=== PATIENT | female | born 1945 | race Caucasian/White ===

== ENCOUNTER → 2019-05-16 13:07 | Outpatient (CLI) | payer MEDICARE, BC, SELFPAY ==
[2016-02-16 09:19] VITALS: BMI 20.7
[2019-05-16 15:47] LABS: ALB/GLOB Ratio 1.2 RATIO (0.9-2.4); AST(SGOT) 17 U/L (15-37); Alanine Aminotransfer ALT/SGPT 22 U/L (13-56); Albumin, Serum 3.8 g/dL (3.2-5.0); Alkaline Phosphatase 62 U/L (45-117); Anion Gap 6 (5-15); BUN 16 mg/dL (7-18); BUN/Creat Ratio 16.2 RATIO (10-20); Calcium,Total 8.8 mg/dL (8.5-10.1); Chloride 108 mmol/L (98-107); Creatinine, Serum 0.99 mg/dL (0.55-1.02); EST Glomerular Filtration Rate 59 mL/min (>60); Est Glom Filt Rate - Afr Amer 71 mL/min (>60); Ferritin 45 ng/mL (8-252); Globulin 3.3 g/dL (2.2-4.2); Glucose 91 mg/dL (74-106); Magnesium 2.4 mg/dL (1.6-2.6); Potassium 3.9 mmol/L (3.5-5.1); Protein, Total 7.1 g/dL (6.4-8.2); Sodium Level 141 mmol/L (136-145)
== END ==
PROVIDERS: Family Provider Family Medicine; PCP Family Medicine; Referring Provider Family Medicine; Visit Provider Family Medicine
DX: R25.2 Cramp and spasm (principal); E61.1 Iron deficiency
CPT/HCPCS: 36415; 80053; 82728; 83735

== ENCOUNTER → 2019-06-23 15:05 | Outpatient (CLI) | payer MEDICARE, BC, SELFPAY ==
[2016-02-16 09:19] VITALS: BMI 20.7
[2019-06-23 17:45] LABS: AST(SGOT) 17 U/L (15-37); Alanine Aminotransfer ALT/SGPT 25 U/L (13-56); Albumin, Serum 3.4 g/dL (3.2-5.0); Alkaline Phosphatase 59 U/L (45-117); Anion Gap 8 (5-15); BUN 10 mg/dL (7-18); BUN/Creat Ratio 11.4 RATIO (10-20); Calcium,Total 8.8 mg/dL (8.5-10.1); Chloride 108 mmol/L (98-107); Creatinine, Serum 0.88 mg/dL (0.55-1.02); EST Glomerular Filtration Rate 67 mL/min (>60); Est Glom Filt Rate - Afr Amer 81 mL/min (>60); Globulin 3.3 g/dL (2.2-4.2); Glucose 115 mg/dL (74-106); Potassium 3.5 mmol/L (3.5-5.1); Protein, Total 6.7 g/dL (6.4-8.2); Sodium Level 143 mmol/L (136-145)
[2019-06-27 03:06] LABS: Immunoglobulin A 381 mg/dL (64-422)
[2019-06-29 13:41] LABS: Deamidated Gliadin IgA 19 units (0-19); Deamidated Gliadin IgG 2 units (0-19); Endomysial Antibody IgA Negative (Negative); Immunoglobulin E 23 IU/mL (6-495); t-Transglutaminase IgA <2 U/mL (0-3)
== END ==
PROVIDERS: Family Provider Family Medicine; PCP Family Medicine; Visit Provider Family Medicine
DX: K29.70 Gastritis, unspecified, without bleeding (principal)
CPT/HCPCS: 36415; 80053; 82784; 82785; 83516; 86255

== ENCOUNTER 2019-07-07 06:30 | Inpatient (IN) | payer MEDICARE, BC, SELFPAY ==
[2019-07-07] VITALS (18 sets, daily range): BP systolic 106–155; BP diastolic 56–77; PULSE 95–116; RESP 16–18; TEMP 37.2–37.9; O2SAT 92–99; BMI 21.3; BMI 21.4
--- NOTE | 2019-07-07 | FLU_PTH ---
PATIENT: BUSTER LARSON LOC: MS3 U#:[id number] AGE/SX: 74/F ROOM: MS320 RE07/07/[address]: Dr. Edilma Valdez MD : 1945 BED: 1 DIS: 07/10/2019 SPEC #: [id number] RECD: 07/07/19 12:15 STATUS: SALLIE REYamile #: [id number] BETTIE: 07/07/19 00:[address]: Edilma Valdez DEPT: CYTOLOGY RECD BY: Carlos Larkin ENTERED: 07/07/19 13:00 SP TYPE: Fluid OTHR DR: Dr. Andrew Collnis MD Tissues: Peritoneal fluid Procedures: Special Stain Group II Surgery Specimen Level IV Cytospin Fluid Comments: NO MICRO ORDERS PER JOSH 07/07/19 HEADER OPERATION: Diagnostic laparoscopy PRE-OP DIAGNOSIS: Abdominal pain, perforation of sigmoid colon due to diverticulitis TISSUE SUBMITTED: Abdomen fluid for cytology DIAGNOSIS CYTOLOGY Abdominal fluid for cytology (cytospin and cell block): Negative for malignant cells. Marked acute inflammation. See cytology study and comment. МАРИЯ:bobby 07/09/19 COMMENT Please also correlate with corresponding surgical specimen [id number]. CYTOLOGY STUDY Slides are reviewed. The specimen predominantly consists of neutrophils. CYTOLOGY GROSS Received is 13 ml of red turbid fluid labeled with the patient's name and and designated per the requisition as abdomen. Submitted for cytology preparation including cell block. /CC:cc 07/07/19 TC:5 CPT: 30892, 50127
[2019-07-07 06:56] LABS: Absolute Lymphocyte Count 0.34 X10^3/uL (0.83-4.51); Absolute Neutrophil Count 12.9 X10^3/uL (2.0-7.7); Basophil# 0.02 X10^3/uL; Basophil% 0.1 % (0-1); Eosinophil# 0.09 X10^3/uL; Eosinophils% 0.7 % (0-5); Hematocrit 43.6 % (37-47); Lymphocyte # 0.34 X10^3/ul (4.0); Lymphocyte % 2.5 % (19-41); Mean Corp Hgb Conc 32.1 g/dL (32-36); Mean Corpuscular Hgb 27.3 pg (27.0-32.0); Mean Platelet Vol. 9.1 fl (6.2-12.0); Monocyte# 0.42 X10^3/uL; NRBC Flagged by Analyzer 0 % (0-5); Neutrophil # 12.87 X10^3/uL (2.7-7.7); Neutrophil % 93.3 % (47-70); POSITIVE DIFFERENTIAL YES; Platelet Count 180 K/mm3 (150-450); RBC Distribution Width CV 13.4 % (11.6-14.6); RBC Distribution Width SD 41.3 fl (35.1-43.9); Red Blood Count 5.13 M/mm3 (4.2-5.4); White Blood Count 13.8 K/mm3 (4.4-11.0)
[2019-07-07 07:04] LABS: Differential Indicated SCAN CRITERIA MET
--- NOTE | 2019-07-07 07:04 | CT_ITS ---
We are attempting to reach an attending provider to discuss findings. An addendum with communication details will be sent when the communication is complete. STUDY: CT ABDOMEN AND PELVIS WITH CONTRAST REASON FOR EXAM: Female, 74 years old. Abdominal pain and bloating RADIATION DOSAGE (If Supplied By Facility): CTDIvol = ( 20.19 ) mGy, DLP = ( 363.78 ) mGycm TECHNIQUE: Transaxial images were obtained from the dome of the diaphragm to the symphysis pubis without oral contrast. IV/Oral Isovue 300 100mL was administered. Sagittal and coronal images were reconstructed. Individualized dose optimization techniques were used for this CT. COMPARISON: None. FINDINGS: The visualized lung bases are unremarkable. The visualized portions of the heart are within normal limits. 1 cm cyst in the anterior segment the right lobe of the liver. Normal gallbladder and extrahepatic biliary system. Normal spleen. Normal pancreas. Normal bilateral adrenal glands. Normal right kidney. Normal left kidney. There is a small hiatal hernia. Normal small intestine. Wall thickening and stranding of surrounding fat of the distal sigmoid colon with some surrounding free fluid as well as bubbles of free air worrisome for infectious colitis or diverticulitis or colonic carcinoma with perforation. Furthermore, a small amount of pneumoperitoneum is seen in the upper abdomen. There is non-visualization of the appendix. Normal abdominal aorta. Normal inferior vena cava. Normal retroperitoneum. Normal urinary bladder. Normal abdominal wall. Mild levoscoliosis of the thoracolumbar spine with degenerative disc disease particularly at L2/L3. CT/Abdomen/Pelvis WITH Contrast IMPRESSION: Inflammatory change in the distal sigmoid colon with pneumoperitoneum consistent with perforation. Differential diagnosis includes infectious colitis, diverticulitis, or colonic carcinoma. Electronically Signed: Adams Jaramillo MD at 9:45 EDT Tel , Service support ,
[2019-07-07] MEDS: Ondansetron 4 MG/2 ML Vial IV ×2 (07:15→17:25)
[2019-07-07] MEDS: Morphine 2 MG/ML Syringe IV ×2 (07:15→17:25)
[2019-07-07 07:16] LABS: Anion Gap 10 (5-15); BUN 14 mg/dL (7-18); BUN/Creat Ratio 13.7 RATIO (10-20); Calcium,Total 8.7 mg/dL (8.5-10.1); Chloride 104 mmol/L (98-107); Creatinine, Serum 1.02 mg/dL (0.55-1.02); EST Glomerular Filtration Rate 57 mL/min (>60); Est Glom Filt Rate - Afr Amer 68 mL/min (>60); Estimated Creatinine Clearance 40.63 ml/min; Glucose 180 mg/dL (74-106); Potassium 3.6 mmol/L (3.5-5.1); Sodium Level 138 mmol/L (136-145)
--- NOTE | 2019-07-07 07:19 | ED.DCSUM_ITS ---
- ER Visit Summary Date of Service: 07/07/19 Chief Complaint: Abdominal pain History of Present Illness: The patient is a 74 F who presents the emergency department for evaluation of abdominal pain and bloating. Patient states that she has had a prior appendectomy. No prior to be. She tells me that one week ago she had dental implants placed and was placed on Keflex. By Sunday she had developed diarrhea that has continued. Last night around 2130 hrs. she developed lower abdominal pain is progressively gotten worse and she states now is generalized in the abdomen. She feels bloated. She had last had any type of bowel movement around 0200 hours. She denies any prior history of colitis, diverticulitis, small bowel obstruction, volvulus. She tells me that one year ago after a trip to the [facility] she had very bad diarrhea was given prescriptions for antibiotics 1 of which she states was for C. difficile though she never had a test that was positive. Physical Examination: 99.3 heart rate of 111 respirations are 16 pulse ox 96% on room air 143/77 Gen: Well-nourished well-developed Head: Normocephalic atraumatic Eyes: Perrl EOMI ENT: TMs clear no rhinorrhea moist mucous membranes Neck: Supple no lymphadenopathy no JVD nontender CVS: Regular rate tachycardic rhythm no murmurs normal S1-S2 Respiratory: No distress clear to auscultation bilaterally chest nontender Abdomen: Patient notes diffuse tenderness to palpation with guarding and rebound. The abdomen feels firm. Hypoactive bowel sounds no masses Back: Nontender Extremity: Nontender no edema Skin: Normal color no rash Neuro: alert orientated ?3 CN II-XII intact normal strength sensation Psych: Normal affect normal mood Test Results: Count is elevated at 13.8. Glucose of 180. Lactic acid returned urinalysis negative. CT down pelvis demonstrates inflammatory changes around the sigmoid colon. Noted to have pneumoperitoneum as well. Emergency Department Course and Treatment: She received IV fluids, Zofran, and morphine. Upon reviewing the CT images myself before the radiologist read was back I contacted Dr. Valdez who is on-call today for general surgery. She will be down to evaluate the patient. In the interim I have ordered additional IV fluids as well as Zosyn and blood cultures. Plan is the patient to be admitted and surgery. Impression: 1. Acute sigmoid colitis 2. Pneumoperitoneum This note was generated with [employer] dictation software. It may contain incorrect words, spelling, and punctuation that were not noted in review of the chart prior to signing ED Disposition - Plan for ED Patient:
[2019-07-07 07:26] LABS: Differential Comment SCANNED
[2019-07-07] MEDS: 0.9% Normal Saline 1,000 ML 125 ML IV (07:37)
--- NOTE | 2019-07-07 07:39 | ED.RN ---
lactic 3.[address] lab. dr nicolas aware
[2019-07-07 07:43] LABS: AST(SGOT) 15 U/L (15-37); Alanine Aminotransfer ALT/SGPT 21 U/L (13-56); Albumin, Serum 3.7 g/dL (3.2-5.0); Alkaline Phosphatase 61 U/L (45-117); Bilirubin, Direct 0.16 mg/dL (0.00-0.30); Globulin 3.4 g/dL (2.2-4.2); Lactic Acid 3.5 mmol/L (0.4-2.0); Lipase 109 U/L (73-393); Protein, Total 7.1 g/dL (6.4-8.2)
[2019-07-07] MEDS: 0.9% Normal Saline 1,000 ML 999 ML IV ×2 (08:08→09:10)
[2019-07-07 09:16] LABS: Bacteria 0 SEEN /hpf (None Seen); Mucous, Urine 0 SEEN /hpf (<or=2+); Red Blood Cells-Urine 0 SEEN /hpf (0-5); White Blood Cells 0 SEEN /hpf (0-5)
[2019-07-07 09:20] LABS: Color, Urine Yellow (Yellow); Glucose, Dipstick Normal (Normal); Ketone-Dipstick Negative (Negative); Leukocyte Esterase-Dipstick Negative /ul (Negative); Nitrite-Dipstick Negative (Negative); Occult Blood-Urine Negative /ul (Negative); Protein-Dipstick Negative (Negative); Specific Gravity, Urine 1.005 (1.002-1.030); Urine Bilirubin Dipstick Negative (Negative); Urine Clarity Sl. Cloudy (Clear); Urine Urobilinogen Normal (Normal)
[2019-07-07 09:29] LABS: Squamous Epithelial Cells - UA 0-5 SEEN /hpf (5-10)
--- NOTE | 2019-07-07 09:57 | HP.PCM_ITS ---
Problem List (1) Abdominal pain Status: Acute (2) Perforation of sigmoid colon due to diverticulitis Status: Acute History of Present Illness Date of Admission: 07/07/19 Chief Complaint: Generalized abdominal pain especially left lower quadrant The patient is a 74 year old F who presented with 1 day history of worsening abdominal pain. Patient noted her abdominal pain started in the left lower quadrant and is now generalized. She eats a plant-based diet with nuts, fruits and veggie based. She notes a history of MVP. 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 She recently had dental implants approximately 1 week ago. She was given Keflex following the implants which gave her diarrhea. She notes her diet has returned to her normal up until the last 2 days. She notes a previous Cologuard approximately 3 years ago which was normal. She is unsure of her last colonoscopy. She notes her family was wanting her to have a colonoscopy. She denies family history of colon cancer. She denies chest pain, shortness of breath currently. Her previous abdominal surgeries include appendectomy and right ovary removal. She is not on any blood thinners. 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 CT scan of the abdomen/pelvis demonstrated the following: Inflammatory change in the distal sigmoid colon with pneumoperitoneum consistent with perforation. Differential diagnosis includes infectious colitis, diverticulitis, or colonic carcinoma. WBC is 13.8 and lactic acid is 3.5. 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: No pertinent AFRICAN HISTORY PROFESSOR history Lives: Spouse/ Significant Other Smoking Status: Never smoker - *Family History Maternal History Items: No pertinent history Paternal History Items: No pertinent history Review of Systems Constitutional: Reports: Anorexia, Chills, Fever, Night Sweats, Weakness, Fatigue HEENT: Denies: Head Aches, Sinus Congestion, Sinus Drainage Cardiovascular: Denies: Chest Pain, Palpitations Respiratory: Denies: Cough, Shortness of breath at rest, Sputum production Gastrointestinal: Reports: Abdominal Pain, Diarrhea, Nausea Genitourinary: Denies: Dysuria Musculoskeletal: Denies: Joint Pain, Joint Tenderness Skin: Denies: Rash, Wounds Neurological: Denies: Numbness, Tingling, Focal weakness Psychiatric: Denies: Anxiety, Depression, Homicidal Ideations, Suicidal Ideations Hematologic/ Lymphatic: Denies: Easy Bruising, Easy Bleeding VTE Information - Inpt Only VTE Present on Admission: Yes VTE Mechan Device Prophylaxis: SCD's Patient Problems: Active and Suspected Problems Abdominal pain (Acute) Perforation of sigmoid colon due to diverticulitis (Acute) - Physical Exam General: Alert, Oriented x3, Cooperative, - - Appears ill HEENT: Atraumatic, PERRLA, EOMI, Normocephalic Neck: Supple, No JVD, Negative Carotid Bruits Lungs: Clear to auscultation, Normal air movement Cardiovascular: Tachycardic Abdomen: Hypoactive Bowel Sounds, Distended, Guarding, Tender - generalized Extremities: No edema, Capillary Refill Less than 3 Seconds Skin: No rashes, No breakdown Musculoskeletal: No Tenderness to Palpation of Joints or Extremities Neurological: Cranial nerves II-XII grossly intact Psych/Mental Status: Normal Affect, Appropriate Vital Signs Temp Pulse Resp BP Pulse Ox 98.9 F 110 H 18 119/65 96 07/07/19 09:51 07/07/19 09:51 07/07/19 09:51 07/07/19 09:51 07/07/19 09:51 Oxygen Delivery Method Room Air Weight: 120 lb 9.486 oz Body Mass Index (BMI) 21.3 Intake and Output for Last 24 Hours 07/05/19 07/06/19 07/07/19 23:59 23:59 23:59 Intake Total 4.58 / 2064.58 Balance 4.58 / 4.58 Laboratory Tests Past 24 Hrs 07/07/19 07/07/19 07/07/19 06:40 06:40 06:56 WBC 13.8 H RBC 5.13 Hgb 14.0 Hct 43.6 MCV 85.0 MCH 27.3 MCHC 32.1 RDW Std Deviation 41.3 RDW Coeff of Mini 13.4 Plt Count 180 MPV 9.1 Immature Gran % (Auto) 0.400 Neut % (Auto) 93.3 H Lymph % (Auto) 2.5 L [place] % (Auto) 3.0 Eos % (Auto) 0.7 Baso % (Auto) 0.1 Absolute Neuts (auto) 12.9 H Absolute Lymphs (auto) 0.34 L Nucleated RBC % 0 Differential Comment SCANNED Sodium 138 Potassium 3.6 Chloride 104 Carbon Dioxide 24.0 Anion Gap 10 BUN 14 Creatinine 1.02 Estim Creat Clear Calc 40.63 Est GFR (MDRD) Af Amer 68 Est GFR (MDRD) Non-Af 57 L BUN/Creatinine Ratio 13.7 Glucose 180 H Lactic Acid Calcium 8.7 Total Bilirubin 0.70 Direct Bilirubin 0.16 AST 15 ALT 21 Alkaline Phosphatase 61 Total Protein 7.1 Albumin 3.7 Globulin 3.4 Lipase 109 Urine Color Urine Clarity Urine pH Ur Specific [place] Urine Protein Urine Glucose (UA) Urine Ketones Urine Occult Blood Urine Nitrite Urine Bilirubin Urine Urobilinogen Ur Leukocyte Esterase Urine RBC Urine WBC Ur Squamous Epith Cells Urine Bacteria Urine Mucus 07/07/19 07/07/19 06:56 09:04 WBC RBC Hgb Hct MCV MCH MCHC RDW Std Deviation RDW Coeff of Mini Plt Count MPV Immature Gran % (Auto) Neut % (Auto) Lymph % (Auto) [place] % (Auto) Eos % (Auto) Baso % (Auto) Absolute Neuts (auto) Absolute Lymphs (auto) Nucleated RBC % Differential Comment Sodium Potassium Chloride Carbon Dioxide Anion Gap BUN Creatinine Estim Creat Clear Calc Est GFR (MDRD) Af Amer Est GFR (MDRD) Non-Af BUN/Creatinine Ratio Glucose Lactic Acid 3.5 H Calcium Total Bilirubin Direct Bilirubin AST ALT Alkaline Phosphatase Total Protein Albumin Globulin Lipase Urine Color Yellow Urine Clarity Sl. Cloudy Urine pH 7.0 Ur Specific [place] 1.005 Urine Protein Negative Urine Glucose (UA) Normal Urine Ketones Negative Urine Occult Blood Negative Urine Nitrite Negative Urine Bilirubin Negative Urine Urobilinogen Normal Ur Leukocyte Esterase Negative Urine RBC 0 SEEN Urine WBC 0 SEEN Ur Squamous Epith Cells 0-5 SEEN Urine Bacteria 0 SEEN Urine Mucus 0 SEEN Assessment/Plan All Active Problems Abdominal pain (Acute) Perforation of sigmoid colon due to diverticulitis (Acute) I am seeing this patient in conjunction with Dr. Valdez. She has independently evaluated this patient with me. Impression: Perforated sigmoid diverticulitis with free abdominal air. Plan: Patient was discussed with Dr. Valdez. Dr. Valdez will plan to perform a emergent diagnostic laparoscopic with possible conversion to open exploration of the abdomen with possible colectomy possible ileostomy creation. Patient and her have had the opportunity to ask and have questions answered. Patient verbally understands and agrees with the plan. Thank you for allowing us to participate in this patient's care. Code Visit Office Visits / Consults: [id number] IP Consult L3
--- NOTE | 2019-07-07 10:30 | EKG12_ITS ---
Test Reason : POST OP Blood Pressure : / mmHG Vent. Rate : 106 BPM Atrial Rate : 106 BPM P-R Int : 196 ms QRS Dur : 102 ms QT Int : 348 ms P-R-T Axes : 061 086 051 degrees QTc Int : 462 ms Sinus tachycardia Otherwise normal ECG Confirmed by ALTAGRACIA GONZALEZ, [place] ([id number]), editor news CAROL WORTHY ([id number]) on 07/09/2019 2:25:58 PM Referred By: EMMETT Confirmed By:KY FRIAS MD
[2019-07-07 11:08] LABS: Reflex Lactate? Y
--- NOTE | 2019-07-07 11:23 | PCM.PN.BLA ---
Progress Note EKG did show some T wave inversions per anesthesia patient denies any chest pain, her troponins are negative currently- she had an echo but that was years ago. We will continue to watch closely during surgery did discuss with patient and that there is any concern during surgery patient would be getting an end colostomy. Patient and the understood.
--- NOTE | 2019-07-07 12:00 | COL_PTH ---
PATIENT: BUSTER LARSON LOC: MS3 U#:[id number] AGE/SX: 74/F ROOM: KY320 RE07/07/[address]: Dr. Edilma Valdez MD : 1945 BED: 1 DIS: 07/10/2019 SPEC #: [id number] RECD: 07/07/19 14:51 STATUS: SALLIE ALEX #: [id number] BETTIE: 07/07/19 12:[address]: Edilma Valdez DEPT: SURGICAL PATHOLOGY RECD BY: Carlos Larkin ENTERED: 07/07/19 15:19 SP TYPE: COLON OTHR DR: Dr. Andrew Collins MD Tissues: A - Colon, NOS B - Colon Donuts C - Colon Donuts Procedures: Surgery Specimen Level III Surgery Specimen Level V HEADER OPERATION: Diagnostic laparoscopy, open, bowel resection PRE-OP DIAGNOSIS: Abdominal pain; perforation of sigmoid colon due to diverticulitis TISSUE SUBMITTED: A - Sigmoid colon, suture distal, B - Distal donut, C - Proximal donut MICROSCOPIC DIAGNOSIS A. Sigmoid colon, colectomy: Diverticulosis and diverticulitis with focal area of ruptured diverticula. See comment. B. Distal donut: Colonic donut with focal mucosal congestion and hemorrhage. C. Proximal donut: Colonic donut with focal mucosal congestion and hemorrhage. SJ:bobby 07/09/19 COMMENT A. Area of rupture shows abscess formation and foreign body giant cell reaction. Please correlate with corresponding cytology specimen [id number]. MICROSCOPIC DESCRIPTION Slides are reviewed. GROSS DESCRIPTION A - Received in fixative is one container labeled with the patient's name and designated sigmoid colon, suture distal margin. The specimen consists of a segment of colon with attached pericolonic adipose tissue measuring 12 cm in length. The proximal margin is stapled. The distal margin identified by a suture is not stapled. No mucosal lesion is identified. Sections reveal a few diverticula. Focal area shows ruptured diverticula. Sections of pericolonic adipose tissue do not reveal any obviously enlarged lymph node. Train Starter sections are submitted in five cassettes as follows: 1 - resection margins, distal resection margin inked black, 2-4 - diverticula (cassettes 2 & 3 contain the ruptured diverticula), 5??pericolonic adipose tissue. / МАРИЯ:bobby 07/08/19 B - Received in fixative is one container labeled with the patient's name and designated distal donut. The specimen consists of a donut-shaped piece of colonic tissue measuring 1.5 x 1 x 1 cm. Multiple sutures are noted. Train Starter sections are submitted in one cassette. / МАРИЯ:bobby 07/07/19 C - Received in fixative is one container labeled with the patient's name and designated proximal donut. The specimen consists of a donut-shaped piece of colonic tissue measuring 1.5 x 1 x 0.5 cm. The entire specimen is submitted in one cassette. / МАРИЯ:bobby 07/07/19 TC:5 CPT: 23353, 43778 x2
[2019-07-07 12:21] LABS: Cytology, Body Fluid / CSF SEE PATHOLOGY REPORT
--- NOTE | 2019-07-07 13:30 | OP.PCM_ITS ---
Report of Operation Date of Procedure: 07/07/19 Pre-Operative Diagnosis: Pneumoperitoneum probable diverticulitis Post-Operative Diagnosis: Pneumoperitoneum, perforated sigmoid diverticulitis Surgery/Procedure Performed:: Diagnostic laparoscopy converted to open sigmoidec meera mines inspector: Disha Robledo mines inspector: Phillip Gomez Type of Anesthesia:: General/Supplemental Anesthesiologist: Andrew Luo Special Medications: Zosyn 4.5 g IV x1 given in ER prior to surgery Specimen's removed: Sigmoid colon Drains: Paez- 750 Estimated Blood Loss (mL): 50 cc Fluids Replaced: 2300 cc Description of Procedure: Patient brought to the operating room placed supine on operating table. Timeout was clear verifying correct patient, procedure, site, positioning, special, prior to beginning procedure. General anesthesia was induced. An OG and Paez catheter were placed. The abdomen was prepped and draped in usual sterile fashion. At 15 blade scalpel was used to make an infraumbilical incision this was deepe tyler to the fascia the fascia was elevated and incised. Abdomen was entered under direct visualization. Coates was placed. The abdomen was insufflated to 15 mmHg. 2 more 5 mm trochars were placed on the right lateral abdomen. Trochars placed under direct visualization. Patient tolerated insufflation well. There is noted to be purulent fluid in the pelvis which was sent for culture. The distal sigmoid did appear thickened and inflamed with the laparoscope was unable to see an obvious perforation. The stomach and upper abdomen did not appear to have any inflammation in that area. Case was converted to laparotomy to have a better look at the sigmoid colon. The 5 mm trochars were removed direct visualization. 10 blade scalpel was used to make a lower midline incision this was deepened to the fascia with electrocautery. A large wound protector was placed. Upon looking at the sigmoid colon there was an area of small perforation. The proximal sigmoid colon was divided at normal colon to resect the area of perforation using NATALIE 75 stapler proximally and Metzenbaum scissors distally at normal/healthy colon. The mesentery was ligated using the LigaSure impact. The sigmoid colon was reanastomosed to the distal sigmoid/rectum using the Ethicon 25 EEA stapler. To accommodate the handle and enterotomy was made along the tinea in the proximal colon. The anvil was placed in the distal colon and a pursestring of 0 Prolene was used. The spike was advanced and connected to the anvil. The stapler was closed ensuring no extra tissue in the anastomosis. Stapler was fired. Stapler was carefully removed, 2 complete donuts were seen. The enterotomy was closed in 2 layers with a efra 3-0 chromic suture transversely and Lembert 3-0 silk sutures. The abdomen was irrigated with 2 L of irrigation. The wound protector was removed. Gowns and gloves were changed. The wound was closed with 1-0 PDS sutures. The skin was closed loosely with 4-0 Monocryl with interrupted Betadine soaked Telfa was used. A 5 mm trocar sites were closed with 4-0 Monocryl interrupted suture. Patient was extubated. Patient tolerates procedure well was taken to the postanesthesia care unit in stable condition. - Complications none
[2019-07-07] MEDS: Bupiv/Epi 0.5% Mpf 30 ML Vial (13:31)
[2019-07-07] MEDS: Lactated Ringers 1,000 ML 125 ML IV (13:45)
[2019-07-07 15:03] LABS: Lactic Acid 1.9 mmol/L (0.4-2.0)
--- NOTE | 2019-07-07 16:41 | EKG12_ITS ---
Test Reason : PRE-OP Blood Pressure : / mmHG Vent. Rate : 118 BPM Atrial Rate : 118 BPM P-R Int : 186 ms QRS Dur : 118 ms QT Int : 324 ms P-R-T Axes : 053 086 022 degrees QTc Int : 454 ms Sinus tachycardia T wave abnormality, consider inferior ischemia Abnormal ECG No previous ECGs available Confirmed by IVET GONZALEZ, STEFANIE ([id number]), medical transcription editor CHARLEE SILVA ([id number]) on 07/28/2019 11:38:45 AM Referred By: EMMETT Confirmed By:STEFANIE COONEY MD
[2019-07-07] MEDS: Morphine 4 MG/ML Syringe IV (20:43)
[2019-07-08] MEDS: Lactated Ringers 1,000 ML 125 ML IV ×2 (00:08→09:13)
[2019-07-08] MEDS: Morphine 4 MG/ML Syringe IV ×2 (01:23→07:45)
[2019-07-08 02:12] VITALS: BP 123/49; PULSE 98; RESP 16; TEMP 37.4; O2SAT 94
[2019-07-08 07:34] LABS: Absolute Lymphocyte Count 1.31 X10^3/uL (0.83-4.51); Basophil# 0.02 X10^3/uL; Basophil% 0.2 % (0-1); Eosinophil# 0.06 X10^3/uL; Eosinophils% 0.5 % (0-5); Hematocrit 36.1 % (37-47); Hemoglobin 11.6 g/dL (12.0-15.0); Lymphocyte # 1.31 X10^3/ul (4.0); Lymphocyte % 9.9 % (19-41); Mean Corp Hgb Conc 32.1 g/dL (32-36); Mean Corpuscular Hgb 28.2 pg (27.0-32.0); Mean Corpuscular Volume 87.8 fL (81-99); Mean Platelet Vol. 9.1 fl (6.2-12.0); Monocyte# 0.68 X10^3/uL; Monocyte% 5.2 % (0-10); NRBC Flagged by Analyzer 0 % (0-5); Neutrophil # 11.01 X10^3/uL (2.7-7.7); Neutrophil % 83.4 % (47-70); Platelet Count 150 K/mm3 (150-450); RBC Distribution Width SD 44.7 fl (35.1-43.9); Red Blood Count 4.11 M/mm3 (4.2-5.4); White Blood Count 13.2 K/mm3 (4.4-11.0)
[2019-07-08 07:41] VITALS: BP 139/67; PULSE 95; RESP 18; TEMP 37.7; O2SAT 97
[2019-07-08 07:45] LABS: Anion Gap 3 (5-15); BUN 11 mg/dL (7-18); BUN/Creat Ratio 14.1 RATIO (10-20); Calcium,Total 8.1 mg/dL (8.5-10.1); Chloride 110 mmol/L (98-107); Creatinine, Serum 0.78 mg/dL (0.55-1.02); EST Glomerular Filtration Rate 77 mL/min (>60); Est Glom Filt Rate - Afr Amer 93 mL/min (>60); Estimated Creatinine Clearance 41.45 ml/min; Glucose 87 mg/dL (74-106); Potassium 3.5 mmol/L (3.5-5.1); Sodium Level 140 mmol/L (136-145)
[2019-07-08] MEDS: 0.9% NaCl Peripheral Flush Adult/Peds IV (07:46)
[2019-07-08] MEDS: Lactated Ringers 1,000 ML 999 ML IV (07:58)
--- NOTE | 2019-07-08 08:08 | PN.SURG_ITS ---
Patient Problems: Active and Suspected Problems Abdominal pain (Acute) Perforation of sigmoid colon due to diverticulitis (Acute) Subjective: Patient did have low-grade fever last night of 100.2 currently 99, urine output little bit lower overnight, patient's abdominal pain controlled with medication, patient denies any flatus - Physical Exam General: Alert, Oriented x3, Cooperative, No apparent distress HEENT: Atraumatic Lungs: Normal air movement Cardiovascular: Regular rate Abdomen: Soft, Distended - Moderate, Tender - Appropriate tender to palpation, incision clean dry and intact with Betadine toney, no peritoneal signs Extremities: No clubbing, No cyanosis, No edema Vital Signs Temp Pulse Resp BP Pulse Ox 99.9 F H 95 18 139/67 H 97 07/08/19 07:41 07/08/19 07:41 07/08/19 07:41 07/08/19 07:41 07/08/19 07:41 Oxygen Flow Rate (L/min) 2 Oxygen Delivery Method Nasal Cannula Weight: 120 lb 9.486 oz Body Mass Index (BMI) 21.3 Intake and Output for Last 24 Hours 07/06/19 07/07/19 07/08/19 23:59 23:59 23:59 Intake Total 3274.58 / 3274.58 50 / 50 Output Total 1060 / 1410 500 / 500 Balance 2214.58 / 1864.58 -450 / -450 Microbiology Past 72 Hours 07/07/19 Unknown Gram Stain - Final Fluid - Peritoneal Laboratory Tests Past 24 Hrs 07/07/19 07/07/19 07/07/19 06:40 09:04 12:19 WBC RBC Hgb Hct MCV MCH MCHC RDW Std Deviation RDW Coeff of Mini Plt Count MPV Immature Gran % (Auto) Neut % (Auto) Lymph % (Auto) Granite % (Auto) Eos % (Auto) Baso % (Auto) Absolute Neuts (auto) Absolute Lymphs (auto) Nucleated RBC % Sodium Potassium Chloride Carbon Dioxide Anion Gap BUN Creatinine Estim Creat Clear Calc Est GFR (MDRD) Af Amer Est GFR (MDRD) Non-Af BUN/Creatinine Ratio Glucose Lactic Acid Calcium Troponin I < 0.015 Urine Color Yellow Urine Clarity Sl. Cloudy Urine pH 7.0 Ur Specific Dickinson 1.005 Urine Protein Negative Urine Glucose (UA) Normal Urine Ketones Negative Urine Occult Blood Negative Urine Nitrite Negative Urine Bilirubin Negative Urine Urobilinogen Normal Ur Leukocyte Esterase Negative Urine RBC 0 SEEN Urine WBC 0 SEEN Ur Squamous Epith Cells 0-5 SEEN Urine Bacteria 0 SEEN Urine Mucus 0 SEEN Miscellaneous Cytology Pending 07/07/19 07/07/19 07/08/19 14:33 16:00 07:12 WBC 13.2 H RBC 4.11 L Hgb 11.6 L Hct 36.1 L MCV 87.8 MCH 28.2 MCHC 32.1 RDW Std Deviation 44.7 H RDW Coeff of Mini 14.0 Plt Count 150 MPV 9.1 Immature Gran % (Auto) 0.800 Neut % (Auto) 83.4 H Lymph % (Auto) 9.9 L [place] % (Auto) 5.2 Eos % (Auto) 0.5 Baso % (Auto) 0.2 Absolute Neuts (auto) 11.0 H Absolute Lymphs (auto) 1.31 Nucleated RBC % 0 Sodium Potassium Chloride Carbon Dioxide Anion Gap BUN Creatinine Estim Creat Clear Calc Est GFR (MDRD) Af Amer Est GFR (MDRD) Non-Af BUN/Creatinine Ratio Glucose Lactic Acid 1.9 Calcium Troponin I < 0.015 Urine Color Urine Clarity Urine pH Ur Specific Dickinson Urine Protein Urine Glucose (UA) Urine Ketones Urine Occult Blood Urine Nitrite Urine Bilirubin Urine Urobilinogen Ur Leukocyte Esterase Urine RBC Urine WBC Ur Squamous Epith Cells Urine Bacteria Urine Mucus Miscellaneous Cytology 07/08/19 07:12 WBC RBC Hgb Hct MCV MCH MCHC RDW Std Deviation RDW Coeff of Mini Plt Count MPV Immature Gran % (Auto) Neut % (Auto) Lymph % (Auto) Granite % (Auto) Eos % (Auto) Baso % (Auto) Absolute Neuts (auto) Absolute Lymphs (auto) Nucleated RBC % Sodium 140 Potassium 3.5 Chloride 110 H Carbon Dioxide 27.0 Anion Gap 3 L BUN 11 Creatinine 0.78 Estim Creat Clear Calc 41.45 Est GFR (MDRD) Af Amer 93 Est GFR (MDRD) Non-Af 77 BUN/Creatinine Ratio 14.1 Glucose 87 Lactic Acid Calcium 8.1 L Troponin I Urine Color Urine Clarity Urine pH Ur Specific Dickinson Urine Protein Urine Glucose (UA) Urine Ketones Urine Occult Blood Urine Nitrite Urine Bilirubin Urine Urobilinogen Ur Leukocyte Esterase Urine RBC Urine WBC Ur Squamous Epith Cells Urine Bacteria Urine Mucus Miscellaneous Cytology Medical Necessity - Tobacco Use Smoking Status: Never smoker Assessment/Plan All Active Problems Abdominal pain (Acute) Perforation of sigmoid colon due to diverticulitis (Acute) 74-year-old female postop day 1 status post sigmoidectomy due to perforated diverticulitis 1. Continue n.p.o. with IV fluids we will give a bolus this morning due to lower urine output overnight. Await bowel function 2. Paez for I's and O's 3. Continue Zosyn IV, leukocytosis 13.2 4. Continue pain control 5. Continue ambulation and incentive spirometer Edilma Valdez M.D. Pager: [phone] [facility] [address] [place] [address], [facility], [address] [place] [address] Office: [phone]
--- NOTE | 2019-07-08 08:22 | NURSING ---
dr kamara in to see pt. made aware only 150ml u.o.p. from [place] to 0600. order to leeashley mahmood in for now & give 1L bolus. will recheck around noon
[2019-07-08] MEDS: Enoxaparin 40 MG/0.4 ML Syringe SC (10:39)
--- NOTE | 2019-07-08 11:00 | CASEMGMT ---
RN CM Face to Face with patient for initial transition planning/care coordination assessment. RN CM introduced self and role at [facility]. Patient sitting in chair, alert and oriented, friends at bedside. RN CM asked permission to continue assessment with friend present, patient gave permission for RN CM to continue with assessment. Patient willing to participate in assessment and is able to answer all questions appropriately. Care providers, pharmacy, and demographics verified. Patient wishes to discharge home, denies need for home health at this time. Patient states she has no further needs or concerns at this time. CM to follow for discharge planning needs that may arise. PCP: Andrew Collins Specialists: None Preferred Pharmacy: [facility] Insurance: [employer] Prescription Benefit: yes Living Will/HPOA: none, would like complete while at hospital LNOK: Living Arrangements: Patient lives with in 2 story home with option for bed and bath on first floor. Transportation: self/ DME/HHC: Patient denies DME or HHC Disposition Plan: Patient to discharge home with family support and follow-up plans in place. Amna JON, RN, CM
[2019-07-08 13:02] VITALS: BP 135/63; PULSE 103; RESP 18; TEMP 37.5; O2SAT 91
[2019-07-08] MEDS: Ketorolac 15 MG/ML Vial IV ×2 (14:13→21:12)
--- NOTE | 2019-07-08 15:24 | CASEMGMT ---
Social Work Note SW received referral for advanced directives. SW will meet with pt tomorrow in regards to advanced directives. Amna La AUTOMOBILE SERVICE STATION MECHANIC, COMMUNITY ENGAGEMENT MANAGER
[2019-07-08 16:58] VITALS: BP 123/49; PULSE 97; RESP 18; TEMP 37.2; O2SAT 91
[2019-07-08 22:38] VITALS: BP 124/58; PULSE 106; RESP 18; TEMP 37; O2SAT 92
[2019-07-09 04:39] VITALS: BP 130/62; PULSE 96; RESP 20; TEMP 37.4; O2SAT 92
[2019-07-09 05:12] LABS: Absolute Lymphocyte Count 1.24 X10^3/uL (0.83-4.51); Absolute Neutrophil Count 8.8 X10^3/uL (2.0-7.7); Basophil# 0.05 X10^3/uL; Basophil% 0.5 % (0-1); Eosinophil# 0.12 X10^3/uL; Eosinophils% 1.1 % (0-5); Lymphocyte # 1.24 X10^3/ul (4.0); Lymphocyte % 11.4 % (19-41); Mean Corp Hgb Conc 29.7 g/dL (32-36); Mean Corpuscular Hgb 28.3 pg (27.0-32.0); Mean Corpuscular Volume 95.1 fL (81-99); Mean Platelet Vol. 9.3 fl (6.2-12.0); Monocyte# 0.59 X10^3/uL; Monocyte% 5.4 % (0-10); NRBC Flagged by Analyzer 0 % (0-5); Neutrophil # 8.84 X10^3/uL (2.7-7.7); Platelet Count 144 K/mm3 (150-450); RBC Distribution Width SD 49.1 fl (35.1-43.9); Red Blood Count 3.89 M/mm3 (4.2-5.4); White Blood Count 10.9 K/mm3 (4.4-11.0)
[2019-07-09 05:36] LABS: Anion Gap 9 (5-15); BUN 13 mg/dL (7-18); BUN/Creat Ratio 20.2 RATIO (10-20); Calcium,Total 7.7 mg/dL (8.5-10.1); Chloride 112 mmol/L (98-107); Creatinine, Serum 0.64 mg/dL (0.55-1.02); EST Glomerular Filtration Rate 96 mL/min (>60); Est Glom Filt Rate - Afr Amer 116 mL/min (>60); Estimated Creatinine Clearance 41.45 ml/min; Glucose 66 mg/dL (74-106); Magnesium 2.1 mg/dL (1.6-2.6); Potassium 3.7 mmol/L (3.5-5.1); Sodium Level 142 mmol/L (136-145)
--- NOTE | 2019-07-09 07:42 | PN.SURG_ITS ---
Patient Problems: Active and Suspected Problems Abdominal pain (Acute) Perforation of sigmoid colon due to diverticulitis (Acute) Subjective: Patient is having flatus but is also still burping. Patient's white blood cell count has decreased, pain is controlled mostly with just with Toradol - Physical Exam General: Alert, Oriented x3, Cooperative, No apparent distress Lungs: Normal air movement Cardiovascular: Regular Rhythm Abdomen: Soft, Distended - Mild, Tender - Appropriately tender near incision, Betadine toney removed Extremities: No clubbing, No cyanosis, No edema Psych/Mental Status: Normal Affect Vital Signs Temp Pulse Resp BP Pulse Ox 99.3 F H 96 20 H 130/62 H 92 07/09/19 04:39 07/09/19 04:39 07/09/19 04:39 07/09/19 04:39 07/09/19 04:39 Oxygen Flow Rate (L/min) 2 Oxygen Delivery Method Room Air Weight: 120 lb 9.486 oz Body Mass Index (BMI) 21.3 Intake and Output for Last 24 Hours 07/07/19 07/08/19 07/09/19 23:59 23:59 23:59 Intake Total 3274.58 / 3274.58 3487.92 / 3487.92 1050 / 1050 Output Total 1060 / 1410 1375 / 1375 450 / 450 Balance 2214.58 / 1864.58 2112.92 / 2112.92 600 / 600 Microbiology Past 72 Hours 07/07/19 Unknown Gram Stain - Final Fluid - Peritoneal Body Fluid Culture - Final Escherichia coli Laboratory Tests Past 24 Hrs 07/08/19 07/09/19 07/09/19 07:12 04:56 04:56 WBC 10.9 RBC 3.89 L Hgb 11.0 L Hct 37.0 MCV 95.1 D MCH 28.3 MCHC 29.7 L RDW Std Deviation 49.1 H RDW Coeff of Mini 14.0 Plt Count 144 L MPV 9.3 Immature Gran % (Auto) 0.600 Neut % (Auto) 81.0 H Lymph % (Auto) 11.4 L [place] % (Auto) 5.4 Eos % (Auto) 1.1 Baso % (Auto) 0.5 Absolute Neuts (auto) 8.8 H Absolute Lymphs (auto) 1.24 Nucleated RBC % 0 Sodium 140 142 Potassium 3.5 3.7 Chloride 110 H 112 H Carbon Dioxide 27.0 21.0 Anion Gap 3 L 9 BUN 11 13 Creatinine 0.78 0.64 Estim Creat Clear Calc 41.45 41.45 Est GFR (MDRD) Af Amer 93 116 Est GFR (MDRD) Non-Af 77 96 BUN/Creatinine Ratio 14.1 20.2 H Glucose 87 66 L Calcium 8.1 L 7.7 L Magnesium 2.1 Medical Necessity - Tobacco Use Smoking Status: Never smoker Assessment/Plan All Active Problems Abdominal pain (Acute) Perforation of sigmoid colon due to diverticulitis (Acute) 74-year-old female postop day 2 status post sigmoidectomy due to perforated diverticulitis 1. We will continue to n.p.o. until patient has increased bowel function and less burping. 2. Good urine output after Paez was removed yesterday 3. Continue Zosyn IV, within normal limits with left shift 4. Continue pain control 5. Continue ambulation and incentive spirometer Edilma Valdez M.D. Pager: [phone] [facility] [address] [place] [address], [facility], [address] [place] [address] Office: [phone]
[2019-07-09 08:11] LABS: Bedside Glucose 63 mg/dL (70-110)
--- NOTE | 2019-07-09 08:49 | NURSING ---
0840 120cc applejuice given per md order. pt up in chair and educated on new orders. verbalizes understanding. states she feels sluggish and blah
[2019-07-09] MEDS: Enoxaparin 40 MG/0.4 ML Syringe SC (09:21)
[2019-07-09 09:30] LABS: Bedside Glucose 102 mg/dL (70-110)
[2019-07-09] MEDS: Ensure Clear 120 ML Liquid PO (11:26)
[2019-07-09 12:56] VITALS: BP 109/92; PULSE 96; RESP 18; TEMP 37; O2SAT 95
[2019-07-09] MEDS: 0.9% NaCl Peripheral Flush Adult/Peds IV ×2 (14:49→17:40)
[2019-07-09] MEDS: Morphine 2 MG/ML Syringe IV (14:49)
--- NOTE | 2019-07-09 15:39 | CASEMGMT ---
Social Work Note SW met with pt to complete advanced directives. Pt states she doesn't feel all that well at this time and denied wanting to complete. Pt states she wishes to review the documents with her too before completing. Amna La ELECTRICAL LABORATORY TECHNICIAN, COMPUTER LABORATORY TECHNICIAN
[2019-07-09 17:28] VITALS: BP 140/60; PULSE 99; RESP 18; TEMP 37.6; O2SAT 95
[2019-07-09] MEDS: Ketorolac 15 MG/ML Vial IV (17:40)
[2019-07-09 21:21] VITALS: BP 134/56; PULSE 92; RESP 20; TEMP 37.6; O2SAT 94
[2019-07-09] MEDS: Docusate Sodium 100 MG Capsule PO (21:26)
[2019-07-10 03:42] VITALS: BP 128/57; PULSE 82; RESP 16; TEMP 37; O2SAT 95
[2019-07-10] MEDS: 0.9% NaCl Peripheral Flush Adult/Peds IV ×2 (05:24→06:15)
[2019-07-10 06:04] LABS: Absolute Lymphocyte Count 1.06 X10^3/uL (0.83-4.51); Absolute Neutrophil Count 4.3 X10^3/uL (2.0-7.7); Basophil# 0.02 X10^3/uL; Basophil% 0.3 % (0-1); Eosinophil# 0.23 X10^3/uL; Eosinophils% 3.7 % (0-5); Hematocrit 31.7 % (37-47); Hemoglobin 10.4 g/dL (12.0-15.0); Lymphocyte # 1.06 X10^3/ul (4.0); Lymphocyte % 17.2 % (19-41); Mean Corp Hgb Conc 32.8 g/dL (32-36); Mean Corpuscular Hgb 28.2 pg (27.0-32.0); Mean Corpuscular Volume 85.9 fL (81-99); Mean Platelet Vol. 9.5 fl (6.2-12.0); Monocyte# 0.51 X10^3/uL; Monocyte% 8.3 % (0-10); NRBC Flagged by Analyzer 0 % (0-5); Neutrophil # 4.33 X10^3/uL (2.7-7.7); Platelet Count 161 K/mm3 (150-450); RBC Distribution Width CV 13.6 % (11.6-14.6); RBC Distribution Width SD 42.1 fl (35.1-43.9); Red Blood Count 3.69 M/mm3 (4.2-5.4); White Blood Count 6.2 K/mm3 (4.4-11.0)
[2019-07-10] MEDS: 0.9% NaCl IVPB Med Flush (250 mL) 15 ML IV (06:14)
--- NOTE | 2019-07-10 06:50 | PN.SURG_ITS ---
Patient Problems: Active and Suspected Problems Abdominal pain (Acute) Perforation of sigmoid colon due to diverticulitis (Acute) Subjective: Patient is having some diarrhea, white blood cell normal with no shift - Physical Exam General: Alert, Oriented x3, Cooperative, No apparent distress Lungs: Normal air movement Cardiovascular: Regular rate Abdomen: Soft, Non-Distended, Passing Flatus, Tender - Appropriately tender near incision clean dry and intact with Steri-Strips Extremities: No clubbing, No cyanosis, No edema Vital Signs Temp Pulse Resp BP Pulse Ox 98.6 F 82 16 128/57 H 95 07/10/19 03:42 07/10/19 03:42 07/10/19 03:42 07/10/19 03:42 07/10/19 03:42 Oxygen Flow Rate (L/min) 2 Oxygen Delivery Method Room Air Weight: 120 lb 9.486 oz Body Mass Index (BMI) 21.3 Intake and Output for Last 24 Hours 07/08/19 07/09/19 07/10/19 23:59 23:59 23:59 Intake Total 3487.92 / 3487.92 4010 / 4010 250 / 250 Output Total 1375 / 1375 1200 / 1200 Balance 2112.92 / 2112.92 2810 / 2810 250 / 250 Microbiology Past 72 Hours 07/07/19 Unknown Gram Stain - Final Fluid - Peritoneal Body Fluid Culture - Final Escherichia coli Laboratory Tests Past 24 Hrs 07/07/19 07/10/19 12:19 05:40 WBC 6.2 RBC 3.69 L Hgb 10.4 L Hct 31.7 L MCV 85.9 D MCH 28.2 MCHC 32.8 RDW Std Deviation 42.1 RDW Coeff of Mini 13.6 Plt Count 161 MPV 9.5 Immature Gran % (Auto) 0.500 Neut % (Auto) 70.0 Lymph % (Auto) 17.2 L [place] % (Auto) 8.3 Eos % (Auto) 3.7 Baso % (Auto) 0.3 Absolute Neuts (auto) 4.3 Absolute Lymphs (auto) 1.06 Nucleated RBC % 0 Miscellaneous Cytology SEE PATHOLOGY REPORT POC Glucose 07/09/19 07/09/19 09:18 08:08 POC Glucose 102 63 L Medical Necessity - Tobacco Use Smoking Status: Never smoker Assessment/Plan All Active Problems Abdominal pain (Acute) Perforation of sigmoid colon due to diverticulitis (Acute) 74-year-old female postop day 2 status post sigmoidectomy due to perforated diverticulitis 1. Advance to clears, questions diarrhea could be from antibiotic-will continue to advance diet if she tolerates and possible D/C today if anne transitional 2. DC Zosyn 3. Continue ambulation and incentive spirometer 4. Continue pain control Edilma Valdez M.D. Pager: [phone] [facility] [address] [place] [address], [facility], [address] [place] [address] Office: [phone]
[2019-07-10] MEDS: Ondansetron 4 MG/2 ML Vial IV (08:47)
[2019-07-10] MEDS: Enoxaparin 40 MG/0.4 ML Syringe SC (09:01)
[2019-07-10] MEDS: Ensure Clear 120 ML Liquid PO ×2 (09:01→11:20)
[2019-07-10 09:42] VITALS: BP 127/61; PULSE 70; RESP 16; TEMP 36.3; O2SAT 96
--- NOTE | 2019-07-10 11:19 | CASEMGMT ---
Social Work SW met with pt to review Advance Directives. Pt stating she received the AD information yesterday and sent it home with her spouse and they plan to follow up with their corporate attorney. CHIDI Wong
--- NOTE | 2019-07-10 11:34 | DCINST_ITS ---
Discharge Diet: - - transitional/low fiber diet until f/u appt Discharge Activity: May Shower May shower in (days): 0 - ok to shower today Lifting Restrictions: no lifting > 20lb x 4 weeks from surgery, no strenous exercise x 6 wks Call your doctor if your incision/area has: Continuous Slow Oozing, Sudden Increased Bleeding, Increased Pain/ Swelling, Increased Redness, Foul Smelling Discharge, Swelling at the incision site Call your doctor if you observe: Fever of 101 or Higher Change Dressing in (Days):: 1 - change daily if no drainage no need to cover Additional Instructions: Ok to take ibuprofen 400-600 mg PO 6h prn for pain with the percocet. avoid tylenol as it already has tylenol. Allergies/Adverse Reactions: Allergies Sulfa (Sulfonamide Antibiotics) Allergy (Verified 02/16/16 09:18) Shortness of breath FLOURIDE Adverse Reaction (Uncoded 02/16/16 09:18) Other Medications to take at Discharge Cephalexin [Keflex] 250 mg PO 4X/DAY 07/07/19 Oxycodone HCl/Acetaminophen [Percocet 5/325] 1 - 2 tablet PO Q6H PRN PRN 3 Days #10 tablet 07/10/19 The following prescriptions were given: Oxycodone HCl/Acetaminophen [Percocet 5/325] 1 - 2 tablet PO Q6H PRN PRN 3 Days #10 tablet PRN Reason: Pain Transmission Status: Sent to [facility] Primary Care Physician: Andrew Collins MD [Primary Care Provider] - Test Results: Test results from this visit will be discussed in further detail at your follow- up appointment, if applicable. Please Follow Up With: Edilma Valdez MD - after 5PM/ weekends call [phone] with any concerns When: call office for f/u appt in 1-2 weeks Proposed Discharge Date: 07/10/19
--- NOTE | 2019-07-10 15:00 | PCM.DC.SUM ---
Discharge Date and Diagnosis - Problem List Patient Problems: Active and Suspected Problems Abdominal pain (Acute) Perforation of sigmoid colon due to diverticulitis (Acute) Date of Admission: 07/07/19 Date of Discharge: 07/10/19 - Primary Discharge Diagnosis Active and Suspected Problems Abdominal pain (Acute) Perforation of sigmoid colon due to diverticulitis (Acute) Hospital Course and Treatment Imaging Results: Clinical Impression(s) from Imaging Studies Abdomen/Pelvis CT 07/07/19 07:04 IMPRESSION: Inflammatory change in the distal sigmoid colon with pneumoperitoneum consistent with perforation. Differential diagnosis includes infectious colitis, diverticulitis, or colonic carcinoma. Electronically Signed: Adams Jaramillo MD at 9:45 EDT Tel , Service support , ADDENDUM: 07/07/19 1008 IMPRESSION: Inflammatory change in the distal sigmoid colon with pneumoperitoneum consistent with perforation. Differential diagnosis includes infectious colitis, diverticulitis, or colonic carcinoma. N.B. : Kalyan Perry MD, confirmed on 07/07/2019 10:01:29 (ET) that the referring physician received the results and does not require a verbal communication. Electronically Signed: Adams Jaramillo MD at 9:45 EDT Tel , Service support , Operations: - - open sigmoidectomy 07/07/19 Procedures: None Summary of Care Provided: The patient is a 74 year old F presented to ER due to abd pain, f/c. On w/u pt was found to have free air on CT a/p c/w diverticulitis perforation in sigmoid colon. Pt had WBC of 13 and f/c in the ER. Pt only takes supplements at home, never had a colonoscopy. Pt underwent dx lap converted to open sigmoidectomy with colocolonic anastomatosis 07/07/19. Post operatively pt did well and was on zosyn IV, intraop cx were +for E.Coli. Pathology was c/w diverticulitis. POD 2 pt had flatus but was still having burping as well, later that day and POD 3 pt had +BM. WBC was wnl POD 3, IV abx stopped, pt diet was advanced to transitional and she tolerated it well. Patient Problems: Active and Suspected Problems Abdominal pain (Acute) Perforation of sigmoid colon due to diverticulitis (Acute) - Physical Exam General: Alert, Oriented x3, Cooperative, No apparent distress HEENT: Atraumatic Lungs: Normal air movement Cardiovascular: Regular rate Abdomen: Soft, Non-Distended, Tender - near incision c/d/i, no PS Extremities: No edema Psych/Mental Status: Normal Affect Vital Signs Temp Pulse Resp BP Pulse Ox 97.4 F L 70 16 127/61 H 96 07/10/19 09:42 07/10/19 09:42 07/10/19 09:42 07/10/19 09:42 07/10/19 09:42 Oxygen Flow Rate (L/min) 2 Oxygen Delivery Method Room Air Weight: 120 lb 9.486 oz Body Mass Index (BMI) 21.3 Intake and Output for Last 24 Hours 07/08/19 07/09/19 07/10/19 23:59 23:59 23:59 Intake Total 3487.92 / 3487.92 4010 / 4010 300 / 300 Output Total 1375 / 1375 1200 / 1200 Balance 2112.92 / 2112.92 2810 / 2810 300 / 300 Microbiology Past 72 Hours 07/07/19 Unknown Gram Stain - Final Fluid - Peritoneal Body Fluid Culture - Final Escherichia coli Laboratory Tests Past 24 Hrs 07/07/19 07/10/19 12:19 05:40 WBC 6.2 RBC 3.69 L Hgb 10.4 L Hct 31.7 L MCV 85.9 D MCH 28.2 MCHC 32.8 RDW Std Deviation 42.1 RDW Coeff of Mini 13.6 Plt Count 161 MPV 9.5 Immature Gran % (Auto) 0.500 Neut % (Auto) 70.0 Lymph % (Auto) 17.2 L [place] % (Auto) 8.3 Eos % (Auto) 3.7 Baso % (Auto) 0.3 Absolute Neuts (auto) 4.3 Absolute Lymphs (auto) 1.06 Nucleated RBC % 0 Miscellaneous Cytology SEE PATHOLOGY REPORT Discharge Diet: - - transitional diet Discharge Activity: May not drive while taking narcotic pain medications., May Shower Lifting Restrict to (lbs):: 20 - x 4 weeks Call your doctor if your incision/area has: Continuous Slow Oozing, Sudden Increased Bleeding, Increased Pain/ Swelling, Increased Redness, Foul Smelling Discharge, Swelling at the incision site Call your doctor if you observe: Fever of 101 or Higher Change Dressing in (Days):: 1 - change daily if no drainage no need to cover Home Medications: Medications to take at Discharge Cephalexin [Keflex] 250 mg PO 4X/DAY 07/07/19 Oxycodone HCl/Acetaminophen [Percocet 5/325] 1 - 2 tablet PO Q6H PRN PRN 3 Days #10 tablet 07/10/19 Following Prescrptions Were Given to Patient: Oxycodone HCl/Acetaminophen [Percocet 5/325] 1 - 2 tablet PO Q6H PRN PRN 3 Days #10 tablet PRN Reason: Pain Transmission Status: Sent to [facility] Primary Care Physician: Andrew Collins MD [Primary Care Provider] - Please Follow Up With: Edilma Valdez MD - after 5PM/ weekends call [phone] with any concerns When: call office for f/u appt in 1-2 weeks Disposition: Home Minutes spent on discharge:: 15 Patient Condition:: Good Medical Necessity - Tobacco Use Smoking Status: Never smoker Meaningful Use Info Meaningful Use Diagnoses (Choose all that apply): None applicable
[2019-07-10 19:00] VITALS: BP 121/73; PULSE 81; RESP 16; TEMP 36.6; O2SAT 95
== END 2019-07-10 18:55 | disposition home or self-care (01) | DRG 854 ==
LOC: ED 09:52 → SDC 09:54 → AC 09:54 → MS3 11:18 → SDC 14:04 → MS3 14:04
PROVIDERS: Anesthesiology; Admitting Provider Surgery; Emergency Provider Emergency Medicine; Family Provider Family Medicine; PCP Family Medicine; Visit Provider Surgery
PROC: 0DBN0ZZ Excision of Sigmoid Colon, Open Approach (ICD-10-PCS; CPT 49320; principal; 2019-07-07 11:40)
DX: A41.9 Sepsis, unspecified organism (principal); K57.20 Diverticulitis of large intestine with perforation and abscess without bleeding; Z53.31 Laparoscopic surgical procedure converted to open procedure
CPT/HCPCS: 36415; 74177; 80048; 80076; 81001; 82962; 83605; 83690; 83735; 84484; 85025; 87040; 87070; 87075; 87076; 87077; 87186; 87205; 88108; 88304; 88305; 88307; 88313; 93005; 99284; J7030; J7050; J7120; Q9967; A4216; J2405

== ENCOUNTER → 2019-07-23 14:04 | Outpatient (CLI) | payer MEDICARE, BC, SELFPAY ==
[2019-07-23 13:39] VITALS: BMI 21.3
[2019-07-23 15:51] LABS: Absolute Lymphocyte Count 1.82 X10^3/uL (0.83-4.51); Absolute Neutrophil Count 4.2 X10^3/uL (2.0-7.7); Basophil# 0.07 X10^3/uL; Eosinophil# 0.12 X10^3/uL; Eosinophils% 1.7 % (0-5); Hematocrit 41.6 % (37-47); Hemoglobin 13.1 g/dL (12.0-15.0); Lymphocyte # 1.82 X10^3/ul (4.0); Lymphocyte % 26.5 % (19-41); Mean Corp Hgb Conc 31.5 g/dL (32-36); Mean Corpuscular Hgb 27.3 pg (27.0-32.0); Mean Corpuscular Volume 86.7 fL (81-99); Mean Platelet Vol. 9.5 fl (6.2-12.0); Monocyte% 8.7 % (0-10); NRBC Flagged by Analyzer 0 % (0-5); Neutrophil # 4.24 X10^3/uL (2.7-7.7); Neutrophil % 61.7 % (47-70); Platelet Count 387 K/mm3 (150-450); RBC Distribution Width CV 13.4 % (11.6-14.6); RBC Distribution Width SD 42.5 fl (35.1-43.9); White Blood Count 6.9 K/mm3 (4.4-11.0)
[2019-07-23 16:28] LABS: AST(SGOT) 15 U/L (15-37); Alanine Aminotransfer ALT/SGPT 17 U/L (13-56); Albumin, Serum 3.7 g/dL (3.2-5.0); Alkaline Phosphatase 61 U/L (45-117); Anion Gap 6 (5-15); BUN 15 mg/dL (7-18); BUN/Creat Ratio 17.4 RATIO (10-20); Calcium,Total 9.2 mg/dL (8.5-10.1); Chloride 104 mmol/L (98-107); Creatinine, Serum 0.86 mg/dL (0.55-1.02); EST Glomerular Filtration Rate 69 mL/min (>60); Est Glom Filt Rate - Afr Amer 83 mL/min (>60); Ferritin 85 ng/mL (8-252); Globulin 3.6 g/dL (2.2-4.2); Glucose 91 mg/dL (74-106); Magnesium 2.3 mg/dL (1.6-2.6); Potassium 3.9 mmol/L (3.5-5.1); Protein, Total 7.3 g/dL (6.4-8.2); Sodium Level 137 mmol/L (136-145); Thyroid Stim Hormone (TSH) 1.24 uIU/mL (0.358-3.74)
== END ==
PROVIDERS: Family Provider Family Medicine; PCP Family Medicine; Referring Provider Family Medicine; Visit Provider Family Medicine
DX: E83.51 Hypocalcemia (principal); K57.92 Diverticulitis of intestine, part unspecified, without perforation or abscess without bleeding
CPT/HCPCS: 36415; 80053; 82728; 83735; 84443; 85025

== ENCOUNTER 2020-06-23 14:35 | Observation (INO) | payer MEDICARE, BC, SELFPAY ==
[2019-09-05 09:05] VITALS: BMI 21.3
--- NOTE | 2020-06-16 15:40 | EKG12_ITS ---
Test Reason : PREOP Blood Pressure : / mmHG Vent. Rate : 072 BPM Atrial Rate : 072 BPM P-R Int : 188 ms QRS Dur : 102 ms QT Int : 404 ms P-R-T Axes : 000 107 137 degrees QTc Int : 442 ms Normal sinus rhythm Lateral infarct , age undetermined Abnormal ECG Confirmed by ALTAGRACIA GONZALEZ, [place] ([id number]), proposal editor LOUISE PEDRAZA ([id number]) on 06/17/2020 3:43:32 PM Referred By: Do Stoll Confirmed By:KY FRIAS MD
[2020-06-16 17:19] LABS: Hematocrit 43.6 % (37-47); Hemoglobin 14.3 g/dL (12.0-15.0); Mean Corp Hgb Conc 32.8 g/dL (32-36); Mean Corpuscular Volume 85.5 fL (81-99); Mean Platelet Vol. 8.9 fl (6.2-12.0); Platelet Count 245 K/mm3 (150-450); RBC Distribution Width CV 13.1 % (11.6-14.6); RBC Distribution Width SD 40.6 fl (35.1-43.9); White Blood Count 6.6 K/mm3 (4.4-11.0)
[2020-06-16 17:52] LABS: ALB/GLOB Ratio 1.1 RATIO (0.9-2.4); AST(SGOT) 17 U/L (15-37); Alanine Aminotransfer ALT/SGPT 22 U/L (13-56); Alkaline Phosphatase 64 U/L (45-117); Anion Gap 3 (5-15); BUN 10 mg/dL (7-18); BUN/Creat Ratio 11.1 RATIO (10-20); Calcium,Total 9.5 mg/dL (8.5-10.1); Chloride 106 mmol/L (98-107); EST Glomerular Filtration Rate 65 mL/min (>60); Est Glom Filt Rate - Afr Amer 79 mL/min (>60); Globulin 3.6 g/dL (2.2-4.2); Glucose 103 mg/dL (74-106); Potassium 3.5 mmol/L (3.5-5.1); Protein, Total 7.6 g/dL (6.4-8.2); Sodium Level 140 mmol/L (136-145)
[2020-06-16 18:27] LABS: Color, Urine Yellow (Yellow); Glucose, Dipstick Normal (Normal); Ketone-Dipstick Negative (Negative); Leukocyte Esterase-Dipstick 100 /ul (Negative); Nitrite-Dipstick Negative (Negative); Occult Blood-Urine 10 /ul (Negative); Protein-Dipstick Negative (Negative); Urine Bilirubin Dipstick Negative (Negative); Urine Clarity Clear (Clear); Urine Urobilinogen Normal (Normal)
[2020-06-23] VITALS (11 sets, daily range): BP systolic 120–165; BP diastolic 51–92; PULSE 69–88; RESP 16; TEMP 36.2–36.9; O2SAT 93–100
[2020-06-23] MEDS: Lactated Ringers 1,000 ML 100 ML IV ×2 (07:25→10:47)
--- NOTE | 2020-06-23 07:30 | HYST_PTH ---
PATIENT: BUSTER LARSON LOC: MS3 U#:[id number] AGE/SX: 75/F ROOM: MS307 RE06/23/[address]: Dr. Do Stoll MD : [id number] BED: 1 DIS: 06/25/2020 SPEC #: [id number] RECD: 06/23/20 10:50 STATUS: SALLIE REYamile #: [id number] BETTIE: 06/23/20 07:[address]: Do Stoll DEPT: SURGICAL PATHOLOGY RECD BY: Carlos Larkin ENTERED: 06/23/20 11:31 SP TYPE: HYSTERECT OTHR DR: Dr. Ashely Ponce DO Tissues: Uterus, NOS Procedures: Surgery Specimen Level V HEADER OPERATION: Vaginal hysterectomy, A & P repair, vaginal cuff suspension PRE-OP DIAGNOSIS: Uterovaginal prolapse, cystocele, rectocele TISSUE SUBMITTED: Uterus and cervix MICROSCOPIC DIAGNOSIS Uterus and cervix, vaginal hysterectomy and A & P repair: Cervix - chronic inflammation. Endometrium - weakly proliferative endometrium with focal cystic changes. Endometrial polyp - benign endometrial polyp with weakly proliferative endometrium and focal cystic changes. Myometrium - intramural leiomyomas (largest measuring 1.5 cm in greatest dimension. Mucosal tissue - fragments of squamous mucosa, no pathologic diagnosis. SJ:bobby 06/24/20 MICROSCOPIC DESCRIPTION Slides are reviewed. GROSS DESCRIPTION Received in fixative is one container labeled with the patient's name and designated uterus and cervix. The specimen consists of a hysterectomy specimen consisting of uterus with cervix and detached pieces of mucosal tissue. The uterus with cervix weighs 53 gm and measures 8 x 5 x 3.5 cm. The serosal surface is garcía, glistening. The ectocervical mucosa is unremarkable. The external os is oval in contour. The endocervical canal measures 2 cm in length and the endocervical mucosa is unremarkable. The triangular endometrial cavity measures 3.5 cm in length and 2 cm in width. The endometrium is garcía, glistening and measures <0.1 cm in thickness. The endometrial cavity shows a garcía-pink polyp measuring 1 x 0.7 x 0.3 cm. The myometrial wall underneath the polyp is not indurated. Sections of the uterine wall reveal multiple nodular masses. The largest mass measures 1.5 cm in greatest dimension. Sections of these masses reveal garcía whorled cut surfaces without areas of hemorrhage, necrosis or cystic degeneration. The uninvolved uterine wall measures 1.5 cm in thickness. Also present in the container are five variable sized pieces of garcía mucosal tissue measuring in aggregate 5.5 x 5 x 0.5 cm. No mucosal lesion is identified. Multiple instrumentation markings are noted. Aquarium Tank Attendant sections are submitted in nine cassettes as follows: 1 - anterior cervix, 2 - posterior cervix, 3 & 4 - anterior uterine wall, 5 & 6 - posterior uterine wall, 7 - endometrial polyp and underlying uterine wall, 8 - nodular masses, 9 - garcía mucosal tissue. / МАРИЯ:bobby 06/23/20 TC:1 CPT: 63770
--- NOTE | 2020-06-23 07:47 | PCM.HPOB.BLA ---
- Problem List (1) Uterovaginal prolapse, incomplete Status: Chronic (2) cystocele Status: Chronic (3) rectocele Status: Chronic Patient Generated Health Data Patient Generated Health Data: History of presenting illness this patient has noted pelvic discomfort and pressure for some years and is now at the point where she would like to have some repair done. She had she has not had a hysterectomy and experienced menopause at age 55. Her Pap smears have been normal. Review of systems constitutional no symptoms Gastrointestinal chronic constipation alternating with diarrhea but doing better on psyllium Gynecologic history of vaginal dryness improved on estrogen cream Urinary symptoms: She had not noticed any symptoms however when she tried using a tampon for several days her urine stream was much better . Social and family history she is she denies tobacco alcohol or illicit drug use Allergies are listed on the chart Current medications psyllium and other supplements. Physical exam shows an elderly white female who looks younger than stated age she is alert and oriented x3 and cooperative Cardiovascular system regular rate and rhythm Lungs: Clear to auscultation bilaterally Abdomen soft nontender without organomegaly Pelvic exam vulva and vagina normal and age appropriate urethra is normal. Bladder is nontender. Vagina is redundant with evidence of cystocele and rectocele and thinning of rugae. Cervix prolapses [facility] down the vagina. Uterus is normal sized without masses. Adnexa no masses are palpated. Anus no perianal fissures. An endometrial biopsy done for questionable appearance of the endometrium showed no suspicious cells. Impression 1 uterovaginal prolapse incomplete 2 cystocele and rectocele. The plan is to perform vaginal hysterectomy with anterior and posterior repair and vaginal cuff support. The patient has been counseled extensively and understands the procedure. Risks and benefits were explained and she is willing to proceed.
[2020-06-23] MEDS: Cefotetan 2 GM in 0.9% NS 100 ML IV (07:49)
[2020-06-23] MEDS: Estrogens,Conj. 1 Tube 1 DOSE (09:45)
--- NOTE | 2020-06-23 11:04 | OP.PCM_ITS ---
Report of Operation Date of Procedure: 06/23/20 Pre-Operative Diagnosis: INComplete uterovaginal prolapse, cystocele and r ectocele Post-Operative Diagnosis: Same. Intraperitoneal adhesions Surgery/Procedure Performed:: Vaginal hysterectomy, anterior and posterior repair, uterosacral vaginal cuff suspension Description of Surgical Findings:: There was prolapse of the uterus with significant cystocele and rectocele and internally there were adhesions of the large bowel to other parts of itself in the peritoneal cavity, presumably extending to the pelvic sidewall so the ovaries and fallopian tubes, could not be freed to be removed through the vaginal cuff. heddle machine operator: Bettina - Disha Robledo Type of Anesthesia:: General Anesthesiologist: Yvette Tim Special Medications: None Specimen's removed: Uterus, vaginal epithelium Drains: Paez Estimated Blood Loss (mL): 100 Description of Procedure: In the operating room general anesthesia was obtained. The patient was prepped and draped in the usual sterile fashion in the dorsolithotomy position and the bladder was emptied for 200 mL of clear urine and 10 mils of sterile milk placed in it. An egg crate was placed behind the patient's hips for comfort. A weighted speculum was placed in the vagina and the anterior and posterior cervix were grasped with Muse tenaculum and the cervix was injected circumferentially with 10 mL of dilute epinephrine solution. A circumscribing incision was made and the vaginal epithelium was dissected off the cervix. The posterior cul-de-sac was easily entered and as the bladder was dissected upwards pedicles were made of the uterosacral and cardinal ligaments which were Reynaldo suture ligated with #0 Vicryl for good hemostasis. A third pedicle was made on each side of the broad ligament again dissecting the bladder upwards after which it was possible to deliver the fundus of the uterus posteriorly. There was a small flimsy adhesion which was lysed. The anterior peritoneum was entered and after this it was possible to clamp across the top of the broad ligament, fallopian tube and utero-ovarian ligaments. These pedicles were cut to free the uterus after which the peritoneum was packed with moist tape and the final pedicles were suture ligated for good hemostasis. Attempts were made to bring the fallopian tube and ovary on either side into view with traction on this uppermost pedicle however multiple attempts were unsuccessful. I was able to feel the ovaries which were quite atrophic on each side however it was not possible to bring them into the surgical field for possible removal. Of note was that the large bowel was somewhat adherent to itself with flimsy adhesions and I suspect there were more of these holding the adnexa to the pelvic sidewall. The decision for bilateral salpingo-oophorectomy was abandoned. Posteriorly, a superficial stitch of #0 Vicryl was placed between the uterosacral ligaments to close off a potential enterocele and then #0 PDS sutures were placed, one through each uterosacral ligament with traction on the vaginal cuff end of the same. These were held for later use. The posterior two thirds of the vaginal cuff was reefed with #0 Vicryl in a running locked fashion. A pursestring suture of #0 Monocryl was placed through the peritoneum above the Vicryl suture posteriorly and this was tied off with only the PDS sutures coming through the peritoneal cuff. Posteriorly 1 end of each PDS suture was brought out through the vaginal cuff. The posterior two thirds of the vaginal cuff was closed with a running lock suture of #0 Vicryl in a vertical fashion. Anteriorly the cystocele repair was carried out by placing Allis clamps on the edge of the vaginal cuff and injecting the anterior vaginal epithelium with 10 mL o of dilute epinephrine solution. The Metzenbaums were used to dissect the vaginal epithelium of the cystocele and the same was reduced by placing 2 pursestring sutures of #3-0 Vicryl and a couple of Noemy plication sutures. An extra stitch was placed at the base of the Paez bulb after the Paez was replaced and 100 mL of dilute milky urine was emptied. Excess vaginal epithelium was trimmed off and the anterior vagina was closed in 2 segments with running lock sutures of #3-0 Vicryl. Once the vaginal cuff was reached the free arm of the PDS suture was brought out through the anterior edge of the vaginal cuff. The vaginal cuff was reapproximated in the midline incorporating the anterior third of the vaginal cuff in the midline to the posterior edges of the same and leaving a small space on each end, with the 0 PDS suture was tied down to the uterosacral ligaments on each side, elevating the cuff and varying the suture at the same time. Attention was then turned to the rectocele repair. Allis clamps were placed at the base of the hymenal ring and posterior vagina and injected with 10 mL of dilute epinephrine solution. A triangular shaped piece of tissue was thick excised between the Allis clamps along the perineal body and posteriorly the vaginal mucosa was dissected off the rectocele. A pursestring suture of #2-0 Vicryl was placed at the most prominent part of the rectocele and multiple interrupted sutures placed to reapproximate the edges of the levator ani and strengthen the posterior vaginal wall. Rectal exam was performed to confirm there were no large gaps. Excess vaginal epithelium was then trimmed off and the posterior vagina was closed with a running lock suture of #0 Vicryl up to the hymenal ring. Externally the bulbO cavernosus muscles were reapproximated with #0 Vicryl sutures and the rest of the repair was completed with #3-0 Vicryl in standard fashion for episiotomy. The vagina was packed with 1 inch plain gauze with some estrogen cream. Sponge tape needle and instrument counts were correct x2 and the patient was taken to the recovery area awake and in stable condition - Admit VTE Documentation VTE Mechan Device Prophylaxis: SCD's VTE Pharm Prophylaxis ordered?: No Reason prophylaxis not ordered:: Procedure Not Indicated
[2020-06-23] MEDS: Ondansetron 4 MG/2 ML Vial IV ×3 (12:20→21:20)
[2020-06-23] MEDS: Ibuprofen 400 MG Tablet PO ×2 (12:55→20:27)
[2020-06-23] MEDS: Lactated Ringers 1,000 ML 75 ML IV (16:41)
[2020-06-23] MEDS: HYDROmorphone 1 MG/ML Syringe IV (17:12)
[2020-06-23] MEDS: Docusate Sodium 100 MG Capsule PO (21:20)
[2020-06-24 00:10] VITALS: BP 119/50; PULSE 71; RESP 16; TEMP 36.7; O2SAT 96
--- NOTE | 2020-06-24 00:42 | NURSING ---
At. 2030 on 06/23/20 I removed 5ml of normal saline from pts catheter per Dr's order.
[2020-06-24] MEDS: Ibuprofen 400 MG Tablet PO ×4 (01:20→20:42)
[2020-06-24 04:15] VITALS: BP 110/49; PULSE 71; RESP 16; TEMP 36.9; O2SAT 97
[2020-06-24 05:28] LABS: Hematocrit 33.1 % (37-47); Mean Corp Hgb Conc 33.2 g/dL (32-36); Mean Corpuscular Hgb 28.1 pg (27.0-32.0); Mean Corpuscular Volume 84.7 fL (81-99); Mean Platelet Vol. 8.9 fl (6.2-12.0); Platelet Count 175 K/mm3 (150-450); RBC Distribution Width CV 13.2 % (11.6-14.6); RBC Distribution Width SD 40.7 fl (35.1-43.9); Red Blood Count 3.91 M/mm3 (4.2-5.4); White Blood Count 9.5 K/mm3 (4.4-11.0)
[2020-06-24 05:42] LABS: Anion Gap 5 (5-15); BUN 13 mg/dL (7-18); BUN/Creat Ratio 13.8 RATIO (10-20); Calcium,Total 8.3 mg/dL (8.5-10.1); Chloride 108 mmol/L (98-107); Creatinine, Serum 0.94 mg/dL (0.55-1.02); EST Glomerular Filtration Rate 62 mL/min (>60); Est Glom Filt Rate - Afr Amer 75 mL/min (>60); Glucose 88 mg/dL (74-106); Potassium 3.5 mmol/L (3.5-5.1); Sodium Level 140 mmol/L (136-145)
[2020-06-24] MEDS: Lactated Ringers 1,000 ML 75 ML IV (06:18)
[2020-06-24] MEDS: Docusate Sodium 100 MG Capsule PO (08:25)
--- NOTE | 2020-06-24 08:47 | PCM.PN.OB ---
Subjective: Fair pain control on Ibuprofen only. Declines Tylenol due to upset stomach with this. Nausea. Worse yesterday with movement. Better this am. Ready to try some breakfast. - Physical Exam Vitals/I&O's: Vital Signs Temp Pulse Resp BP Pulse Ox 98.5 F 71 16 110/49 L 97 06/24/20 04:15 06/24/20 04:15 06/24/20 04:15 06/24/20 04:15 06/24/20 04:15 Oxygen Flow Rate (L/min) 2 Oxygen Delivery Method Room Air Weight: 49.7 kg Body Mass Index (BMI) 20.0 Intake and Output for Last 24 Hours 06/22/20 06/23/20 06/24/20 23:59 23:59 23:59 Intake Total 2277.5 / 2277.5 828.75 / 828.75 Output Total 800 / 800 1025 / 1025 Balance 1477.5 / 1477.5 -196.25 / -196.25 General: Alert, Oriented x3, Cooperative, No apparent distress HEENT: Normocephalic Lungs: Clear to auscultation Cardiovascular: Regular rate, Regular Rhythm, Normal S1, Normal S2, No murmurs Abdomen: Soft - flat. Back - no CVAT, Non Tender, Non-Distended Extremities: No edema, No Calf Tenderness Neurological: Neuro grossly intact Psych/Mental Status: Normal Affect, Appropriate Laboratory Results 06/24/20 05:15: WBC 9.5, RBC 3.91 L, Hgb 11.0 L, Hct 33.1 L, MCV 84.7, MCH 28.1, MCHC 33.2, RDW Std Deviation 40.7, RDW Coeff of Mini 13.2, Plt Count 175, MPV 8.9 06/24/20 05:15: Sodium 140, Potassium 3.5, Chloride 108 H, Carbon Dioxide 27.0, Anion Gap 5, BUN 13, Creatinine 0.94, Estim Creat Clear Calc 41.20, Est GFR (MDRD) Af Amer 75, Est GFR (MDRD) Non-Af 62, BUN/Creatinine Ratio 13.8, Glucose 88, Calcium 8.3 L Current Medications Acetaminophen (Tylenol) 650 mg PO Q6H [facility] Last Admin: 06/24/20 04:50 Dose: Not Given Documented by: Docusate Sodium (Colace) 100 mg PO BID [facility] Last Admin: 06/24/20 08:25 Dose: 100 mg Documented by: Famotidine (Pepcid) 20 mg PO DAILY [facility] Hydromorphone HCl (Dilaudid Inj) 0.5 - 1 mg IV Q3H PRN PRN PRN Reason: Pain Score 4-10/10 Last Admin: 06/23/20 17:12 Dose: 0.5 mg Documented by: Lactated Ringer's () 1,000 mls @ 75 mls/hr IV .[id number] [facility] Last Infusion: 06/24/20 08:26 Dose: 0 mls/hr Documented by: Sodium Chloride () 250 mls @ 15 mls/hr IV .[id number] PRN PRN Reason: Saline Flush Sodium Chloride () 250 mls @ 15 mls/hr IV .[id number] PRN PRN Reason: Additional IVPB Infusion Ibuprofen (Motrin) 400 mg PO Q6H [facility] Last Admin: 06/24/20 08:24 Dose: 400 mg Documented by: Magnesium Hydroxide (Milk Of Magnesia) 15 ml PO DAILY [facility] Ondansetron HCl (Zofran) 4 mg IV Q4H PRN PRN PRN Reason: NAUSEA Last Admin: 06/23/20 21:20 Dose: 4 mg Documented by: Simethicone (Mylicon) 80 mg PO [facility] Last Admin: 06/24/20 08:25 Dose: 80 mg Documented by: Sodium Chloride () 10 - 40 ml IV UD PRN PRN Reason: SALINE FLUSH Medical Necessity - Tobacco Use Smoking Status: Never smoker Tobacco Use: Non-smoker Assessment/Plan All Active Problems (Last Reviewed 09/05/19 @ 09:04 by Ashley Esquivel) Abdominal pain (Acute) Perforation of sigmoid colon due to diverticulitis (Acute) Post operative day #1 after Vaginal hysterectomy with pelvic organ prolapse repair Labs unremarkable Paez and packing just removed. Nausea - more than expected, but improved. Observe further. Explained sometimes ureteral kinking may cause nausea, if persistent, will get IVP to exclude. Plan to discharge this pm if tolerating diet and nausea resolved.
[2020-06-24] MEDS: Famotidine 20 MG Tablet PO (09:12)
[2020-06-24 09:15] VITALS: BP 125/63; PULSE 71; RESP 18; TEMP 36.4; O2SAT 100
--- NOTE | 2020-06-24 09:22 | PCM.DC.VHY ---
Discharge Activity: May Not Drive, May Shower - but no baths Return to work on:: 08/05/20 May resume sexual activity in: 6-8 weeks Lifting Restrictions: No more than 10lbs for 6 wks Additional Activity Instructions:: No exercising, yoga, spend first week in home. Call your doctor if your incision/area has: Sudden Increased Bleeding, Foul Smelling Discharge Call your doctor if you observe: Fever of 101 or Higher, Inability to urinate, Inability to have a bowel movement, Using more than one pad per hour, Dizziness, Calf discomfort, Uncontrolled pain Cleanse incision/area with: Soap & Water Allergies/Adverse Reactions: Allergies Sulfa (Sulfonamide Antibiotics) Allergy (Verified 06/14/20 13:15) Shortness of breath latex Adverse Reaction (Verified 06/23/20 06:03) PT UNSURE OF REACTION FLOURIDE Adverse Reaction (Uncoded 09/05/19 09:04) Other Medications to take at Discharge Docusate Sodium [Colace] 100 mg PO BID #30 cap 06/24/20 Famotidine [Pepcid] 20 mg PO DAILY #10 tab 06/24/20 Ibuprofen [Motrin] 400 mg PO Q6H #20 tab 06/24/20 Oxycodone [Oxyir] 5 mg PO Q6H PRN PRN 2 Days #5 tablet 06/24/20 SimETHICONE [Mylicon] 80 mg PO [facility] PRN 5 Days #20 tab 06/24/20 The following prescriptions were given: Docusate Sodium [Colace] 100 mg PO BID #30 cap Transmission Status: Pending to [facility] Ibuprofen [Motrin] 400 mg PO Q6H #20 tab Transmission Status: Pending to [facility] SimETHICONE [Mylicon] 80 mg PO [facility] PRN 5 Days #20 tab PRN Reason: Gas Transmission Status: Pending to [facility] Oxycodone [Oxyir] 5 mg PO Q6H PRN PRN 2 Days #5 tablet PRN Reason: Pain Score 6-10/10 Transmission Status: Sent to [facility] Famotidine [Pepcid] 20 mg PO DAILY #10 tab Transmission Status: Pending to [facility] Orders to be completed after discharge: 12 Lead EKG [[facility]] Time Frame: 06/16/20, Location: None Selected ,Urine Time Frame: 06/23/20, Facility: [facility], Location: Laboratory Primary Care Physician: Ashely Ponce DO [Primary Care Provider] - Test Results: Test results from this visit will be discussed in further detail at your follow-up appointment, if applicable. Please Follow Up With: Do Stoll MD When: 1 week Proposed Discharge Date: 06/24/20
[2020-06-24] MEDS: Magnesium Hydroxide 30 ML UDC 15 ML PO (09:34)
--- NOTE | 2020-06-24 10:53 | PHA.DC.MC ---
Pharmacy Service has performed discharge medication reconciliation and counseling for this patient. 1. DOCUSATE 100MG PO BID 2. FAMOTIDINE 20MG PO DAILY X 10 DAYS 3. IBUPROFEN 400MG PO Q6H X 5 DAYS 4. OXYCODONE 5MG PO Q6H PRN PAIN X 2 DAYS 5. SIMETHICONE 80MG PO [facility] PRN GAS The patient's discharge medication list was reviewed for discrepancies and discrepancies were resolved. Patient would like to utilize [facility] and requested they call her with the [facility]. I called retail and asked them to do so. Home Medications Docusate Sodium [Colace] 100 mg PO BID #30 cap 06/24/20 Famotidine [Pepcid] 20 mg PO DAILY #10 tab 06/24/20 Ibuprofen [Motrin] 400 mg PO Q6H #20 tab 06/24/20 Oxycodone [Oxyir] 5 mg PO Q6H PRN PRN 2 Days #5 tab 06/24/20 SimETHICONE [Mylicon] 80 mg PO [facility] PRN 5 Days #20 tab 06/24/20 The patient was counseled on the following discharge medications and changes in medications for homegoing were reviewed. The Reason for Use, instructions for use, and potential side effects were reviewed for all new medications. The patient's questions regarding all of their medications were answered. The patient was able to verbally demonstrate an understanding of their discharge medications. Patient was counseled by pharmacy intake coordinator, Bette.
[2020-06-24] MEDS: oxyCODONE 5 MG Tablet PO (11:36)
--- NOTE | 2020-06-24 12:25 | US_ITS ---
STUDY: RENAL ULTRASOUND - COMPLETE REASON FOR EXAM: Female, 75 years old. EVAL FOR HYDRO /JETS TECHNIQUE: Ultrasound evaluation of the kidneys was performed with real-time and static schultz-scale imaging. COMPARISON: CT scan 07/07/2019. FINDINGS: RIGHT KIDNEY: Normal location of the right kidney, which is normal in size. The right kidney measures 10.1 x 4.9 x 4.7 cm. There is a normal cortex of the right kidney. The renal cortex measures 1.6 cm. There is no right renal mass or cyst. There are no right renal calculi. There is no right hydronephrosis. DISTAL RIGHT URETER: There is non-visualization of the distal right ureter. There is no demonstrated right ureterovesical junction calculus. There is a visualized right ureteral jet. LEFT KIDNEY: Normal location of the left kidney, which is normal in size. The left kidney measures 10.3 x 4.5 x 4.9 cm. There is a normal cortex of the left kidney. The renal cortex measures 1.2 cm. There is no left renal mass or cyst. There are no left renal calculi. There is no left hydronephrosis. DISTAL LEFT URETER: There is non-visualization of the distal left ureter. There is no demonstrated left ureterovesical junction calculus. There is a visualized left ureteral jet. BLADDER: The distended urinary bladder has a volume of 429 ml. There is a normal wall thickness of the distended urinary bladder. There is no demonstrated mass within the urinary bladder. There are no demonstrated bladder calculi. US/Kidney and Bladder IMPRESSION: Normal ultrasound of the kidneys and urinary bladder. Bilateral ureteral jets are seen. Electronically Signed: Guido Randle MD at 22:27 EDT , Service support ,
[2020-06-24 14:50] VITALS: BP 128/52; PULSE 70; RESP 16; TEMP 37.1; O2SAT 98
[2020-06-24] MEDS: Bisacodyl 10 MG Suppository RECTAL (14:50)
--- NOTE | 2020-06-24 19:25 | PN.OBGYN_ITS ---
Patient Problems: Active and Suspected Problems (Last Reviewed 09/05/19 @ 09:04 by Ashley Esquivel) Postoperative state (Acute) Postoperative state (Acute) Nausea alone (Acute) Subjective: Nausea, unable to eat much, but no emesis today. Somewhat improved from yesterday. Pelvic pressure post- removal of Paez catheter Trying to have a BM without success. Flatus + - Physical Exam Vitals/I&O's: Vital Signs Temp Pulse Resp BP Pulse Ox 98.7 F 70 16 128/52 H 98 06/24/20 14:50 06/24/20 14:50 06/24/20 14:50 06/24/20 14:50 06/24/20 14:50 Oxygen Flow Rate (L/min) 2 Oxygen Delivery Method Room Air Weight: 49.7 kg Body Mass Index (BMI) 20.0 Intake and Output for Last 24 Hours 06/22/20 06/23/20 06/24/20 23:59 23:59 23:59 Intake Total 2277.5 / 2277.5 2040.00 / 2040.00 Output Total 800 / 800 2325 / 2325 Balance 1477.5 / 1477.5 -285.00 / -285.00 Laboratory Results 06/24/20 05:15: WBC 9.5, RBC 3.91 L, Hgb 11.0 L, Hct 33.1 L, MCV 84.7, MCH 28.1, MCHC 33.2, RDW Std Deviation 40.7, RDW Coeff of Mini 13.2, Plt Count 175, MPV 8.9 06/24/20 05:15: Sodium 140, Potassium 3.5, Chloride 108 H, Carbon Dioxide 27.0, Anion Gap 5, BUN 13, Creatinine 0.94, Estim Creat Clear Calc 41.20, Est GFR (MDRD) Af Amer 75, Est GFR (MDRD) Non-Af 62, BUN/Creatinine Ratio 13.8, Glucose 88, Calcium 8.3 L Current Medications Acetaminophen (Tylenol) 650 mg PO Q6H [facility] Last Admin: 06/24/20 18:17 Dose: Not Given Documented by: Docusate Sodium (Colace) 100 mg PO BID [facility] Last Admin: 06/24/20 08:25 Dose: 100 mg Documented by: Famotidine (Pepcid) 20 mg PO DAILY [facility] Last Admin: 06/24/20 09:12 Dose: 20 mg Documented by: Hydromorphone HCl (Dilaudid Inj) 0.5 - 1 mg IV Q3H PRN PRN PRN Reason: Pain Score 4-10/10 Last Admin: 06/23/20 17:12 Dose: 0.5 mg Documented by: Sodium Chloride () 250 mls @ 15 mls/hr IV .[id number] PRN PRN Reason: Saline Flush Sodium Chloride () 250 mls @ 15 mls/hr IV .[id number] PRN PRN Reason: Additional IVPB Infusion Ibuprofen (Motrin) 400 mg PO Q6H [facility] Last Admin: 06/24/20 14:52 Dose: 400 mg Documented by: Magnesium Hydroxide (Milk Of Magnesia) 15 ml PO DAILY [facility] Last Admin: 06/24/20 09:34 Dose: 15 ml Documented by: Ondansetron HCl (Zofran) 4 mg IV Q4H PRN PRN PRN Reason: NAUSEA Last Admin: 06/23/20 21:20 Dose: 4 mg Documented by: Oxycodone HCl (Oxyir) 5 mg PO Q6H PRN PRN PRN Reason: Pain Score 6-10/10 Last Admin: 06/24/20 11:36 Dose: 5 mg Documented by: Simethicone (Mylicon) 80 mg PO [facility] Last Admin: 06/24/20 18:17 Dose: Not Given Documented by: Sodium Chloride () 10 - 40 ml IV UD PRN PRN Reason: SALINE FLUSH Medical Necessity - Tobacco Use Smoking Status: Never smoker Tobacco Use: Non-smoker Assessment/Plan All Active Problems (Last Reviewed 09/05/19 @ 09:04 by Ashley Esquivel) Postoperative state (Acute) Postoperative state (Acute) Nausea alone (Acute) Abdominal pain (Acute) Perforation of sigmoid colon due to diverticulitis (Acute) Post - op day #1 after pelvic organ prolapse surgery Elderly Patient discomfort on multiple fronts, anxiety about going home. Nausea, likely related to anesthesia. Cr stable, and U/S demonstrated bilateral ureteral jets and no hydronephrosis. Urine retention - up to 400ml even after several voiding attempts, so pediatric Paez placed to continuous drainage. Reassured inability to void post POP surgery is not unusual, and will keep bladder decompressed for several days, and expect she can void later. No BM - reassured patient this is not a requirement for discharge, and to await spontaneous results and avoid straining. Will allow patient to spend the night for comfort and reassurance - likely home in am. Explanations given to patient
[2020-06-24 20:46] VITALS: BP 139/56; PULSE 67; RESP 18; TEMP 36.9; O2SAT 95
[2020-06-25 01:09] VITALS: BP 142/55; PULSE 70; RESP 18; TEMP 36.9; O2SAT 97
[2020-06-25 06:29] VITALS: BP 133/61; PULSE 63; RESP 18; TEMP 36.8; O2SAT 98
[2020-06-25] MEDS: Famotidine 20 MG Tablet PO (09:03)
[2020-06-25 09:24] VITALS: BP 137/75; PULSE 76; RESP 18; TEMP 36.7; O2SAT 98
--- NOTE | 2020-06-25 09:51 | CASEMGMT ---
ABDI CASTILLO in to complete LATHAM form with patient. ABDI CASTILLO explained LATHAM form to patient, patient voices understanding. LATHAM form signed by patient and original filed on chart. Patient provided copy of signed LATHAM form. Patient had no other questions or concerns.
--- NOTE | 2020-06-25 22:48 | PCM.PN.OB ---
Subjective: Nausea and indigestion largely resolved. Constipation resolved with diarrhea multiple times during the night. Pelvis feeling much better with Paez draining continuously. Wants to go home Objective: Looks well. Abdomen soft, bowel sounds present and normoactive. Paez draining clear coco Ext: Non tender. - Physical Exam Vitals/I&O's: Vital Signs Temp Pulse Resp BP Pulse Ox 98.0 F 76 18 137/75 H 98 06/25/20 09:24 06/25/20 09:24 06/25/20 09:24 06/25/20 09:24 06/25/20 09:24 Oxygen Flow Rate (L/min) 2 Oxygen Delivery Method Room Air Weight: 49.7 kg Body Mass Index (BMI) 20.0 Intake and Output for Last 24 Hours 06/23/20 06/24/20 06/25/20 23:59 23:59 23:59 Intake Total 2277.5 / 2277.5 2340.00 / 2340.00 240 / 240 Output Total 800 / 800 3725 / 3725 750 / 750 Balance 1477.5 / 1477.5 -1385.00 / -1385.00 -510 / -510 General: Alert, Cooperative Psych/Mental Status: Normal Affect, Appropriate Medical Necessity - Tobacco Use Smoking Status: Never smoker Tobacco Use: Non-smoker Assessment/Plan All Active Problems (Last Reviewed 09/05/19 @ 09:04 by Ashley Esquivel) Nausea alone (Acute) Postoperative state (Acute) Postoperative state (Acute) Abdominal pain (Acute) Perforation of sigmoid colon due to diverticulitis (Acute) Post Op day #1 after pelvic Organ prolapse surgery Urine retention with replacement of catheter to con tinuous drainage. Constipation- resolved. Discharged with instructions to allow catheter to drain for 3 days, and will start voiding attempts after Patient comfortable with going home now.
== END 2020-06-25 10:36 | disposition home or self-care (01) ==
LOC: SDC 14:40 → MS3 14:40
PROVIDERS: Anesthesiology; Admitting Provider Obstetrics & Gynecology Gynecology; PCP Internal Medicine; Referring Provider Obstetrics & Gynecology Gynecology; Visit Provider Obstetrics & Gynecology Gynecology
PROC: (CPT 58260; principal; 2020-06-23 07:10)
DX: N81.2 Incomplete uterovaginal prolapse (principal); Z11.59 Encounter for screening for other viral diseases; D25.1 Intramural leiomyoma of uterus; K66.0 Peritoneal adhesions (postprocedural) (postinfection); R33.9 Retention of urine, unspecified
CPT/HCPCS: 00940; 57260; 58260; 36415; 76770; 80048; 80053; 81002; 85027; 86850; 86900; 86901; 87635; 88307; 93005; 96361; 96365; 96366; 96375; 96376; 99218; 99251; C9803; J7120; G0378; G0379; G0463; J2405; U0003

== ENCOUNTER → 2021-08-29 11:17 | Outpatient (CLI) | payer MEDICARE, OTHER, SELFPAY ==
[2021-08-29 11:25] LABS: Mucous, Urine 0 SEEN /hpf (<or=2+); Red Blood Cells-Urine 0 SEEN /hpf (0-5)
[2021-08-29 15:19] LABS: Color, Urine Yellow (Yellow); Glucose, Dipstick Normal (Normal); Ketone-Dipstick 15 mg/dl (Negative); Leukocyte Esterase-Dipstick 25 /ul (Negative); Nitrite-Dipstick Negative (Negative); Occult Blood-Urine Negative /ul (Negative); Protein-Dipstick Negative (Negative); Urine Bilirubin Dipstick Negative (Negative); Urine Clarity Clear (Clear); Urine Urobilinogen Normal (Normal); Urine pH 6.5 (5.0 - 8.0)
[2021-08-29 15:20] LABS: Absolute Lymphocyte Count 1.26 X10^3/uL (0.83-4.51); Absolute Neutrophil Count 5.7 X10^3/uL (2.0-7.7); Basophil# 0.04 X10^3/uL; Basophil% 0.5 % (0-1); Eosinophil# 0.08 X10^3/uL; Eosinophils% 1.1 % (0-5); Hematocrit 41.9 % (37-47); Hemoglobin 14.3 g/dL (12.0-15.0); Lymphocyte # 1.26 X10^3/ul (0.83-4.51); Lymphocyte % 16.6 % (19-41); Mean Corp Hgb Conc 34.1 g/dL (32-36); Mean Corpuscular Hgb 28.7 pg (27.0-32.0); Mean Corpuscular Volume 84.1 fL (81-99); Mean Platelet Vol. 9.2 fl (6.2-12.0); Monocyte# 0.47 X10^3/uL; Monocyte% 6.2 % (0-10); NRBC Flagged by Analyzer 0 % (0-5); Neutrophil # 5.73 X10^3/uL (2.7-7.7); Neutrophil % 75.5 % (47-70); Platelet Count 228 K/mm3 (150-450); RBC Distribution Width CV 13.1 % (11.6-14.6); RBC Distribution Width SD 40.3 fl (35.1-43.9); Red Blood Count 4.98 M/mm3 (4.2-5.4); White Blood Count 7.6 K/mm3 (4.4-11.0)
[2021-08-29 15:30] LABS: Bacteria 1+ /hpf (None Seen); Squamous Epithelial Cells - UA 0-5 SEEN /hpf (5-10); White Blood Cells 0-5 SEEN /hpf (0-5)
[2021-08-29 15:31] LABS: ALB/GLOB Ratio 1.1 RATIO (0.9-2.4); AST(SGOT) 20 U/L (15-37); Alanine Aminotransfer ALT/SGPT 27 U/L (13-56); Albumin, Serum 3.9 g/dL (3.2-5.0); Alkaline Phosphatase 60 U/L (45-117); Anion Gap 7 (5-15); BUN 22 mg/dL (7-18); BUN/Creat Ratio 24.9 RATIO (10-20); Calcium,Total 8.8 mg/dL (8.5-10.1); Chloride 106 mmol/L (98-107); Creatinine, Serum 0.88 mg/dL (0.55-1.02); EST Glomerular Filtration Rate 66 mL/min (>60); Est Glom Filt Rate - Afr Amer 80 mL/min (>60); Globulin 3.7 g/dL (2.2-4.2); Glucose 90 mg/dL (74-106); Protein, Total 7.6 g/dL (6.4-8.2); Sodium Level 140 mmol/L (136-145)
[2021-09-01 06:08] LABS: QNTFERON TB Mitogen Value > 10.00 IU/mL (.); QNTFERON TB Nil Value 0.01 IU/mL (.); QNTFERON TB1+ Ag Value 0.02 IU/mL (.); QNTFERON TB2+ Ag Value 0.03 IU/mL (.)
[2021-09-01 12:56] LABS: QNTIFERON TB Positive Criteria Negative (Negative)
== END ==
PROVIDERS: PCP Internal Medicine; Referring Provider Dermatology Pediatric Dermatology; Visit Provider Dermatology Pediatric Dermatology
DX: L40.0 Psoriasis vulgaris (principal); T50.905A Adverse effect of unspecified drugs, medicaments and biological substances, initial encounter; M25.50 Pain in unspecified joint; Z79.899 Other long term (current) drug therapy
CPT/HCPCS: 36415; 80053; 81001; 85025; 86038; 86225; 86480

== ENCOUNTER → 2024-07-01 | Outpatient (CLI) | payer MEDICARE, OTHER, SELFPAY | END | disposition home or self-care (01) | PROVIDERS: PCP Internal Medicine; Referring Provider Nurse Practitioner Family; Visit Provider Nurse Practitioner Family | DX: R39.9 Unspecified symptoms and signs involving the genitourinary system (principal) | CPT/HCPCS: 87077; 87086; 87088; 87186 ==

== ENCOUNTER → 2024-08-04 | Outpatient (CLI) | payer MEDICARE, OTHER, SELFPAY | END | disposition home or self-care (01) | LOC: LABSPEC 16:52 | PROVIDERS: PCP Internal Medicine; Referring Provider Physician Assistant; Visit Provider Physician Assistant | DX: R39.9 Unspecified symptoms and signs involving the genitourinary system (principal) | CPT/HCPCS: 87086; 87088 ==